=== PATIENT | female | born 1965 | race Caucasian/White ===

== ENCOUNTER 2016-05-23 13:48 | Emergency (ER) | payer OTHER ==
--- NOTE | 2016-05-23 15:51 | UC ---
Back Pain HPI - HPI Summary HPI Summary: 50 yo female with the onset of severe LBP radiating to both thighs which started about 1 AM no bowel/bladder dysfunction no injury Took a ultram with no relief (has ultram on hand for migraines) - History of Current Complaint Chief Complaint: UCBackPain Stated Complaint: LOWER BACK PAIN Time Seen by Provider: 05/23/16 15:44 Hx Obtained From: Patient Hx Last Menstrual Period: August Onset/Duration: Sudden Onset, Lasting Hours - 15 Timing: Constant Severity Initially: Severe Severity Currently: Severe Pain Intensity: 8 Pain Scale Used: 0-10 Numeric Back Pain: Is Discrete @ - mid line lumbar spine, Radiates To - to both thighs anteriorly Character: Sharp, Spasmodic, Burning Aggravating: Movement, Bending Alleviating: Position - Allergies/Home Medications Allergies/Adverse Reactions: Allergies Allergy/AdvReac Type Severity Reaction Status Date / Time Penicillins Allergy Hives Verified 05/23/16 15:12 Amoxicillin Allergy Hives Uncoded 05/23/16 15:12 Home Medications: Home Medications Omeprazole CAP* [Prilosec CAP* 20 MG] 1 cap DAILY 05/23/16 [History Confirmed ] traMADol TAB* [Ultram*] 1 tab PRN 05/23/16 [History] PMH/Surg Hx/FS Hx/Imm Hx Previously Healthy: Yes Endocrine History Of: Denies: Diabetes, Thyroid Disease Cardiovascular History Of: Denies: Cardiac Disorders, Hypertension, Pacemaker/ICD, Myocardial Infarction , Congestive Heart Failure, Atrial Fibrillation, Deep Vein Thrombosis, Bleeding Disorders Respiratory History Of: Denies: COPD, Asthma, Bronchitis, Pneumonia, Pulmonary Embolism GI/ History Of: Reports: Gastroesophageal Reflux - "I do have some reflux--I' m on prescription omeprazole--20 mg). Denies: Ulcer, Gastrointestinal Bleed, Gall Bladder Disease, Kidney Stones, Diverticulitis, Renal Disease, Urosepsis Neurological History Of: Denies: TIA, CVA, Dementia, Seizures, Migraine Psychological History Of: Reports: Anxiety, Depression Cancer History Of: Denies: Lung Cancer, Colorectal Cancer, Breast Cancer, Prostate Cancer, Cervical Cancer Other History Of: Negative For: HIV, Hepatitis B, Hepatitis C - Surgical History Surgical History: Yes Surgery Procedure, Year, and Place: TUBAL 1995. TENDON RELEASE LT THUMB 03/01 - Family History Known Family History: Positive: Diabetes Negative: Cardiac Disease - Social History Alcohol Use: None Substance Use Type: None Smoking Status (MU): Heavy Every Day Tobacco Smoker Type: Cigarettes Amount Used/How Often: 1/2 ppd Length of Time of Smoking/Using Tobacco: 36n years Have You Smoked in the Last Year: Yes Household Exposure Type: Cigarettes - Immunization History Most Recent Influenza Vaccination: 2016 Review of Systems Constitutional: Negative Skin: Negative Eyes: Negative ENT: Negative Respiratory: Negative Cardiovascular: Negative Gastrointestinal: Negative Genitourinary: Negative Motor: Negative Neurovascular: Negative Musculoskeletal: Arthralgia, Myalgia Neurological: Negative Psychological: Negative All Other Systems Reviewed And Are Negative: Yes Physical Exam Triage Information Reviewed: Yes Appearance: Well-Appearing, No Pain Distress, Well-Nourished Vital Signs: Initial Vital Signs Resp 18 05/23/16 15:15 Eyes: Positive: Conjunctiva Clear ENT: Positive: Hearing grossly normal. Negative: Nasal drainage, Trismus, Muffled/hoarse voice Neck: Positive: Nontender, No Lymphadenopathy Respiratory: Positive: Lungs clear, Normal breath sounds, No respiratory distress Cardiovascular: Positive: RRR Musculoskeletal: Positive: ROM Intact, No Edema Neurological: Positive: Alert, Muscle Tone Normal Psychological Exam: Normal Skin Exam: Normal Re-Evaluation - Re-Evaluation First Eval Re-Evaluation Time: 16:50 Change: Unchanged - no change with toradol Back Pain Course/Dx - Differential Dx/Diagnosis Provider Diagnoses: acute low back pain. DDD Discharge - Discharge Plan Condition: Stable Disposition: HOME Prescriptions: Cyclobenzaprine TAB* [Flexeril TAB*] 5 mg PO TID PRN #21 tab PRN Reason: Spasms HYDROcodone/ACETAMIN 5-325 MG* [Hill 5-325 TAB*] 1 tab PO Q4H PRN #15 tab MDD 5 PRN Reason: Pain - Severe Patient Education Materials: Degenerative Disc Disease (ED) Referrals: Nathan Maguire MD [Primary Care Provider] - 3 Days Additional Instructions: both meds will cause drowsiness Images Front/Back of Body, Lg ([facility]): 1 - painful (midline)
[2016-05-23] MEDS ORDERED: Ketorolac INJ* 30 MG/ML 1 ML VIAL IM ONE (15:56)
[2016-05-23 15:58] VITALS: BP 111/71
--- NOTE | 2016-05-23 16:43 | RAD ---
INDICATION: Low back pain COMPARISON: None TECHNIQUE: Routine PA, lateral, and oblique imaging was performed . FINDINGS: Bones: There are no acute bony findings. There are minor arthritic changes consisting of facet arthropathy and minor disc space narrowing at L5-S1. Alignment: Normal Disc spaces: The remaining disc spaces are well-maintained Soft tissues: There are no soft tissue abnormalities. IMPRESSION: MINOR DEGENERATIVE CHANGE LOWER LUMBAR SPINE.
[2016-05-23] MEDS ORDERED: HYDROcodone/ACETAMIN 5-325 MG* 1 TAB PO ONE (16:53)
== END 2016-05-23 17:05 | disposition home or self-care (01) ==
LOC: UCEAST 13:48
DX: M54.5 Low back pain (principal); M51.36 Other intervertebral disc degeneration, lumbar region; Z88.0 Allergy status to penicillin; F17.210 Nicotine dependence, cigarettes, uncomplicated
CPT/HCPCS: 72110; 96372; 99212; G0463; J1885

== ENCOUNTER 2017-02-15 16:11 | Emergency (ER) | payer OTHER ==
[2017-02-15] MEDS ORDERED: NS 0.9% 1000 ML* 1,000 ML IV ONE (16:42)
[2017-02-15] MEDS ORDERED: Ondansetron INJ* 2 MG/ML VIAL IV ONE (16:42)
[2017-02-15] MEDS ORDERED: Morphine INJ* 4 MG/ML 1 ML CARPUJECT IV ONE (16:42)
[2017-02-15 17:03] LABS: Urine Bacteria Absent (Absent); Urine Bilirubin Negative (Negative); Urine Glucose Negative (Negative); Urine Nitrite Negative (Negative)
[2017-02-15 17:11] LABS: Hematocrit 35 % (35-47); Hemoglobin 12.2 g/dl (12.0-16.0); Mean Corpuscular HGB Conc 35 g/dl (31-36); Mean Corpuscular Hemoglobin 35 pg (27-31); Mean Corpuscular Volume 102 fL (80-97); Mean Platelet Volume 7 um3 (7.4-10.4); Red Blood Count 3.44 10^6/ul (4.0-5.4); Red Cell Distribution Width 13 % (10.5-15); White Blood Count 10.3 10^3/ul (3.5-10.8)
[2017-02-15 17:12] LABS: Albumin 4.1 g/dL (3.2-5.2); BUN/Creatinine Ratio 17.5 (8-20); C Reactive Protein 42.52 mg/L (< 5.00); Calcium 8.8 mg/dL (8.6-10.3); EGFR African American 97.6 (>60); EGFR Non-African American 75.9 (>60); Globulin 2.7 g/dL (2-4); Potassium 3.9 mmol/L (3.5-5.0); Total Bilirubin 0.3 mg/dL (0.2-1.0); Total Protein 6.8 g/dL (6.4-8.9)
--- NOTE | 2017-02-15 17:36 | RAD ---
Indication: RIGHT upper quadrant pain. Comparison: No relevant prior exams available on the [facility] for comparison. Technique: RIGHT upper quadrant ultrasound. Report: Appropriate direction flow documented in the portal and hepatic veins. 17.9 cm liver is increased in echogenicity. Negative for focal hepatic lesions. Negative for intrahepatic biliary dilatation. 3.9 mm common bile duct. Partially distended but not dilated gallbladder with normal 2.8 mm wall is remarkable for a 1 cm stone at the neck. Negative for pericholecystic fluid. Negative for sonographic Tillman's sign. The pancreatic tail is partially obscured due to bowel gas with the visualized pancreas unremarkable. Negative for ascites. 9.6 cm RIGHT kidney is unremarkable. IMPRESSION: Cholelithiasis without secondary findings to suggest acute cholecystitis. Hepatic steatosis.
[2017-02-15 18:35] VITALS: BP 111/70
--- NOTE | 2017-02-15 18:44 | ED ---
Ladi Tatum SooYoung, scribed for Morgan Chow MD on 02/15/17 at 1638 . Abdominal Pain/Female - HPI Summary HPI Summary: A 51 y/o F presents to ED with c/o R-sided abd pain onset 0030 last night. Pain is rated as 7-8 out of 10. Associated sx: chills. Denies n/v, fever. Pt has her appy, gallbladder. [facility] two days ago. - History of Current Complaint Chief Complaint: EDAbdPain Stated Complaint: RT SIDED ABD PAIN Time Seen by Provider: 02/15/17 16:35 Hx Obtained From: Patient, Family/Blood Bank Booking Clerk Hx Last Menstrual Period: August Onset/Duration: Lasting Hours, Still Present Timing: Constant Severity Currently: Severe Pain Intensity: 9 Pain Scale Used: 0-10 Numeric Location: Discrete At: RUQ, Discrete At: RLQ Associated Signs and Symptoms: Positive: Other: - pos: chills. Negative: Fever , Nausea, Vomiting Allergies/Adverse Reactions: Allergies Allergy/AdvReac Type Severity Reaction Status Date / Time Penicillins Allergy Hives Verified 02/15/17 16:22 Amoxicillin Allergy Hives Uncoded 02/15/17 16:22 PMH/Surg Hx/FS Hx/Imm Hx Previously Healthy: No Endocrine/Hematology History: Denies: Hx Diabetes, Hx Thyroid Disease Cardiovascular History: Denies: Hx Congestive Heart Failure, Hx Deep Vein Thrombosis, Hx Hypertension , Hx Myocardial Infarction, Hx Pacemaker/ICD Respiratory History: Denies: Hx Asthma, Hx Chronic Obstructive Pulmonary Disease (COPD), Hx Lung Cancer, Hx Pneumonia, Hx Pulmonary Embolism GI History: Reports: Hx Gastroesophageal Reflux Disease, Hx Ulcer Denies: Hx Gall Bladder Disease, Hx Gastrointestinal Bleed, Hx Urosepsis History: Denies: Hx Kidney Stones, Hx Renal Disease Sensory History: Denies: Hx Hearing Aid Neurological History: Reports: Hx Headaches Denies: Hx Dementia, Hx Migraine, Hx Seizures, Hx Transient Ischemic Attacks (TIA) Psychiatric History: Reports: Hx Anxiety, Hx Depression Denies: Hx Panic Disorder - Surgical History Surgery Procedure, Year, and Place: TUBAL 1995. TENDON RELEASE LT THUMB 03/01 Infectious Disease History: No Infectious Disease History: Denies: Hx Hepatitis, Hx Human Immunodeficiency Virus (HIV), History Other Infectious Disease, Traveled Outside the [place] in Last 30 Days - Family History Known Family History: Positive: Cardiac Disease, Hypertension, Diabetes - Social History Occupation: Unemployed Lives: With Family Alcohol Use: None Hx Substance Use: No Substance Use Type: Reports: None, Prescribed Hx Tobacco Use: Yes Smoking Status (MU): Light Every Day Tobacco Smoker Type: Cigarettes Amount Used/How Often: 1/2 ppd Length of Time of Smoking/Using Tobacco: 36n years Have You Smoked in the Last Year: Yes Review of Systems Positive: Chills. Negative: Fever Positive: Abdominal Pain. Negative: Vomiting, Nausea All Other Systems Reviewed And Are Negative: Yes Physical Exam - Summary Physical Exam Summary: VITAL SIGNS: Reviewed. GENERAL: Patient is a well-developed and nourished female who is lying comfortable in the stretcher. Patient is not in any acute respiratory distress. HEAD AND FACE: Normocephalic and atraumatic. EYES: PERRLA, EOMI x 2, No injected conjunctiva. EARS: Hearing grossly intact. Ear canals and tympanic membranes are WNL. MOUTH: Oropharynx within normal limits. NECK: Supple, trachea is midline, no adenopathy, no JVD. CHEST: Symmetric, no tenderness at palpation LUNGS: Clear to auscultation bilaterally. No wheezing or crackles. CVS: RRR, S1 and S2 present, no murmurs or gallops appreciated. ABDOMEN: Soft, RUQ tenderness. No signs of distention. Positive bowel sounds. No rebound, some guarding, and no masses palpated. No abdominal bruit or pulsations. EXTREMITIES: FROM in all major joints, no edema, no cyanosis or clubbing. NEURO: Alert and oriented x 3. No acute neurological deficits. Speech is normal. SKIN: Dry and warm Triage Information Reviewed: Yes Vital Signs On Initial Exam: Initial Vitals Temp Pulse Resp BP Pulse Ox 97.6 F 107 14 108/62 98 02/15/17 16:16 02/15/17 16:16 02/15/17 16:16 02/15/17 16:16 02/15/17 16:16 Vital Signs Reviewed: Yes - [place] Coma Scale Coma Scale Total: 15 Diagnostics - Vital Signs Vital Signs Temp Pulse Resp BP Pulse Ox 02/15/17 16:16 97.6 F 107 14 108/62 98 - Laboratory Lab Results: Lab Results 02/15/17 02/15/17 02/15/17 Range/Units 16:30 16:46 16:46 WBC 10.3 (3.5-10.8) 10^3/ul RBC 3.44 L (4.0-5.4) 10^6/ul Hgb 12.2 (12.0-16.0) g/dl Hct 35 (35-47) % MCV 102 H (80-97) fL MCH 35 H (27-31) pg MCHC 35 (31-36) g/dl RDW 13 (10.5-15) % Plt Count 392 (150-450) 10^3/ul MPV 7 L (7.4-10.4) um3 Neut % (Auto) 69.4 (38-83) % Lymph % (Auto) 18.1 L (25-47) % [place] % (Auto) 10.9 H (1-9) % Eos % (Auto) 1.4 (0-6) % Baso % (Auto) 0.2 (0-2) % Absolute Neuts (auto) 7.2 (1.5-7.7) 10^3/ul Absolute Lymphs (auto) 1.9 (1.0-4.8) 10^3/ul Absolute Monos (auto) 1.1 H (0-0.8) 10^3/ul Absolute Eos (auto) 0.1 (0-0.6) 10^3/ul Absolute Basos (auto) 0 (0-0.2) 10^3/ul Absolute Nucleated RBC 0.01 10^3/ul Nucleated RBC % 0 Sodium 135 (133-145) mmol/L Potassium 3.9 (3.5-5.0) mmol/L Chloride 104 (101-111) mmol/L Carbon Dioxide 25 (22-32) mmol/L Anion Gap 6 (2-11) mmol/L BUN 14 (6-24) mg/dL Creatinine 0.80 (0.51-0.95) mg/dL Est GFR ( Amer) 97.6 (>60) Est GFR (Non-Af Amer) 75.9 (>60) BUN/Creatinine Ratio 17.5 (8-20) Glucose 88 (70-100) mg/dL Calcium 8.8 (8.6-10.3) mg/dL Total Bilirubin 0.30 (0.2-1.0) mg/dL AST 19 (13-39) U/L ALT 17 (7-52) U/L Alkaline Phosphatase 93 (34-104) U/L C-Reactive Protein 42.52 H (< 5.00) mg/L Total Protein 6.8 (6.4-8.9) g/dL Albumin 4.1 (3.2-5.2) g/dL Globulin 2.7 (2-4) g/dL Albumin/Globulin Ratio 1.5 (1-3) Lipase 19 (11.0-82.0) U/L Urine Color Yellow Urine Appearance Clear Urine pH 5.0 (5-9) Ur Specific [place] 1.011 (1.010-1.030) Urine Protein Negative (Negative) Urine Ketones Negative (Negative) Urine Blood 1+ H (Negative) Urine Nitrate Negative (Negative) Urine Bilirubin Negative (Negative) Urine Urobilinogen Negative (Negative) Ur Leukocyte Esterase Negative (Negative) Urine WBC (Auto) Absent (Absent) Urine RBC (Auto) Trace(0-2/hpf) (Absent) Urine Bacteria Absent (Absent) Urine Glucose Negative (Negative) Result Diagrams: 02/15/17 16:46 02/15/17 16:46 Lab Statement: Any lab studies that have been ordered have been reviewed, and results considered in the medical decision making process. - Ultrasound No standard instances Ultrasound Interpretation: Positive (See Comments) - IMPRESSION: Cholelithiasis without secondary findings to suggest acute cholecystitis. Hepatic steatosis. ED physician has reviewed this radiology report and agrees Ultrasound Interpretation Completed By: Radiologist - EKG 1735 Cardiac Rate: NL - 95bpm EKG Rhythm: Sinus Rhythm ST Segment: Normal - no ST elevation EKG Interpretation: Q-waves in III EKG Comparison: No Significant Change - from EKG on 09/14/2015 Re-Evaluation - Re-Evaluation 1 Re-Evaluation Time: 17:35 Change: Improved Comment: Discussing results with pt. Pt voiced understanding. Pain has subsided. Abdominal Pain Fem Course/Dx - Course Course Of Treatment: A 51 y/o F presents to ED with c/o R-sided abd pain onset 0030 last night. Pain is rated as 7-8 out of 10. Associated sx: chills. Denies n /v, fever. Pt has her appy, gallbladder. [facility] two days ago. In the ED course an IV access was obtained. Patient was placed in a builder beam. Patient was started with IV fluids. Patient was given Zofran and morphine for the pain. Labs without any significant abnormality except for CRP 42.5. UA is negative for UTI. RUQ U/S IMPRESSION: Cholelithiasis without secondary findings to suggest acute cholecystitis. Hepatic steatosis. After hydration and above medications all her symptoms have improved. Patient is asymptomatic. I believe all her symptoms are secondary to the Cholelithiasis. Patient will be discharge home with F/U of Surgery. Patient instructed that if pain increases, if pain appears in the RLQ she should return to the ED for further w/u. Patient understands and agrees. I discussed all the findings and test results with the patient. Patient was instructed to return to the emergency room immediately if any of the symptoms return or worsens. They were explained the possibility of an early abdominal pathology which was not detected at this time despite the physical exam and testing. They understand and agree. Abdominal exam before discharge: Soft, NT. No signs of distention. BS present. No rebound no guarding , and no masses palpated. Patient is alert and oriented and hemodynamically stable. Patient is to follow up with primary care physician in the next 2 to 3 days. Patient agree and understands. - Diagnoses Differential Diagnosis: Positive: Appendicitis, Constipation, Gall Bladder Disease, Pancreatitis, Renal Colic, Urinary Tract Infection Provider Diagnoses: Cholelithiasis Discharge - Discharge Plan Condition: Stable Disposition: HOME Patient Education Materials: Gallstones (ED) Referrals: Nathan Maguire MD [Primary Care Provider] - Angel Holley MD [Medical Doctor] - 1 Week Additional Instructions: Follow up with Dr. Holley, surgery, within the week. Please return to the ED if you experience new or worsening symptoms. The documentation as recorded by the Ladi boyd SooYoung accurately reflects the service I personally performed and the decisions made by , Morgan Chow MD.
== END 2017-02-15 18:35 | disposition home or self-care (01) ==
LOC: ED 16:11
DX: R10.9 Unspecified abdominal pain (principal); F17.210 Nicotine dependence, cigarettes, uncomplicated; K80.20 Calculus of gallbladder without cholecystitis without obstruction
CPT/HCPCS: 36415; 76705; 80053; 81003; 81015; 83690; 85025; 86140; 93005; 96374; 96375; 99282; J2270; J2405

== ENCOUNTER 2017-07-15 09:47 | Emergency (ER) | payer OTHER ==
--- OUTSIDE RECORDS SUMMARY | 2017-07-15 09:56 | XMS REPORT ---
:1965 External Reference #:[id number] Author Organization [facility] [employer] Address [address] [address] Phone [phone] Care Team Providers Name Role Phone Qi Johnson MD Primary Care Physician Unavailable Payers Type Date Identification Numbers Payment Provider Subscriber Commercial Policy Number: [id number] [employer] Name: [id number] [address] PayID: [id number] [place] [address] Commercial Effective: 2016 Policy Number: [id number] Evaristo Rutledge Expires: 2016 Group Name: [id number] [address] PayID: [id number] [place] [address] Commercial Expires: 2017 Policy Number: [id number] [employer] Name: [id number] [address] PayID: [id number] [place] [address] Problems Date Description Provider Status Onset: 02/24/2014 Degeneration of lumbar intervertebral Nisa Vasques M.D. Active disc Onset: 02/24/2014 Degeneration of cervical intervertebral Nisa Vasques M.D. Active disc Note: C5/C6 with bilateral foraminal stenosis Onset: 02/24/2014 Irregular periods Nisa Vasques M.D. Active Onset: 05/27/2017 Anxiety disorder Qi Johnson M.D. Active Onset: 02/24/2014 Acute gastritis Nisa Vasques M.D. Resolved Resolved: 05/27/2017 Social History Type Date Description Comments Marital Status Lives With Lives With Children Occupation retired ordnance truck installation supervisor WC injury Cigarette Use Current Cigarette Smoker 1 1/2 Packs Daily Cigarette Use 36 yr started age 13 ETOH Use Denies alcohol use Recreational Drug Use Denies Drug Use Smoking Patient is a current smoker, smokes every day Smoking Light tobacco smoker (10 or fewer cigarettes/day) Exercise Type/Frequency Exercises regularly Exercise Type/Frequency 1-2 x per week walks Sexual Hx text yes Allergies, Adverse Reactions, Alerts Date Description Reaction Status Severity Comments 02/24/2014 Nicotine adhesive bothers skin active Moderate allergic to the patches. 02/24/2014 Adhesive rash active Moderate 02/24/2014 Penicillin Contact dermatitis active Moderate 02/24/2014 Amoxicillin Contact dermatitis active Moderate 02/24/2014 Celebrex swelling active Moderate 02/24/2014 Lyrica swelling active Moderate 02/24/2014 Topamax headache active Moderate 02/24/2014 Cymbalta swelling active 02/24/2014 Gabapentin headache active Moderate 02/24/2014 Hydrocodone increased pain active Mild 02/24/2014 Vicodin increased pain active Mild 07/06/2014 Tramadol headache active Moderate Medications Medication Date Status Form Strength Qnty SIG Indications Ordering Provider Home Cervical 06/22/ Active Device use for M50.80 [employer] [employer] 2018 10-25 Howell, minutes M.D. twice daily at 7 pounds. stop if symptoms worsen Compression 06/10/ Active Misc 1Pair 10-20 mm I87.2 Qi Stockings 2018 hg as Alex, needed M.D. Venlafaxine HCL 05/27/ Active Tablets ER 225mg 30tab once a F41.9 Qi ER 2018 24HR s day Aldo Johnson Baclofen 05/01/ Active Tablets 10mg 90tab 1 by Qi 2014 s mouth 3 Johnson, times a M.D. day Tension Headache / Active Tablets 500-65mg 6 po qd Unknown Relief 0000 as needed Arnicare / Active Gel apply to Unknown 0000 painful area 3-4 times a day as needed for pain Ibuprofen / Active Tablets 200mg as needed Unknown 0000 Omeprazole / Active Capsules 40mg [address] mouth every day Ventolin HFA / Active Aerosol 108(90Base Unknown 0000 ) mcg/Act Krill Oil / Active Capsules 500mg Unknown 0000 Womens One Daily / Active Tablets 1 by Unknown 0000 mouth every day Muscle Therapy / Active as needed Unknown Gel With Arnica 0000 for back and neck Flector 05/27/ Hx Patches 1.3% 10uni 1 patch M50.03 Qi 2017 - ts daily Johnson, 06/10/ M.D. 2017 Hydroxyzine HCL 11/26/ Hx Tablets 25mg 30tab 1 tab by F41.9 Qi 2015 - mouth Alex, 01/26/ every M.D. 2017 night as needed for anxiety Ventolin HFA 06/12/ Hx Aerosol 108(90Base 1unit 2 puffs Nisa 2015 - ) mcg/Act s by mouth Layo, 01/26/ four M.D. 2017 times a day as needed Chantix 06/05/ Hx Tablets 1mg 30tab 1 by F17.210 Nisa 2015 - mouth Layo, 11/26/ twice a M.D. 2015 day Chantix 05/04/ Hx Tablets 0.5mg 1tabs starter F17.210 Nisa 2015 - pack as Layo, 06/05/ directed M.D. 2016 Venlafaxine HCL 11/17/ Hx Tablets 75mg 30tab 1 by F41.9 Nisa 2014 mouth Layo, 01/26/ every day M.D. 2016 Chantix 08/31/ Hx Tablets 1mg 60tab 1 by Nisa 2014 - s mouth Layo, 10/05/ twice a M.D. 2014 day Chantix 08/10/ Hx Tablets 0.5mg 1tabs starter V15.82 Nisa 2014 pack as Layo, 06/04/ directed M.D. 2016 Venlafaxine HCL 07/06/ Hx Caps ER 150mg 30cap 1 by N92.6 Nisa ER 2014 - 24HR s mouth Layo, 05/27/ every day M.D. 2017 Venlafaxine HCL 04/07/ Hx Tablets 75mg 30tab 1 by 626.4 Nisa 2013 - s mouth Layo, 07/06/ every day M.D. 2014 Venlafaxine HCL 03/08/ Hx Caps ER 37.5mg 1mont 1 tab by 626.4 Nisa LONGORIA 2013 - 24HR h mouth Layo, 04/07/ every day M.D. 2013 7 days the 2 tab by mouth every day 3 weeks Nicotrol 03/08/ Hx Inhaler 10mg 150un i inhaler V15.82 Nias 2013 - its 5 ginnyaviva Layo, 05/01/ per day M.D. 2014 as needed Cyclobenzaprine 02/24/ Hx Tablets 10mg 30tab one by Fiedl MAYA 2013 - s mouth at [place] 05/01/ bedtime 1 , M.D. 2014 per day as needed spasm Omeprazole 02/24/ Hx Capsules 20mg 90cap 1 by K29.00 Qi 2013 - DR ash Johnson, 05/27/ every day M.D. 2017 Excedrin Migraine / Hx Tablets 250-250-65 2 po qd Unknown 0000 - mg as needed 2014 Back & Body / Hx Tablets 500-32.5mg 6 po qd Unknown Extra Strength - 2014 Deep Blue Relief / Hx Gel twice a Unknown 0000 - day as 2014 and to neck and back Acid Hand Knitter / Hx Tablets 150mg 1 by Unknown 0000 - mouth 07/06/ every day 2014 Tums / Hx Chewtabs 500mg as needed Unknown - 2014 Meloxicam / Hx Tablets 7.5mg 1 by Unknown 0000 - mouth 09/19/ every day 2015 Multi For Her / Hx Capsules 1 by Unknown 0000 - mouth 01/18/ every day 2014 Tramadol HCL / Hx Tablets 50mg 1-2 Unknown 0000 - tablets 2018 hours as needed Hair/Skin/Nails / Hx Tablets Unknown 0000 - 2017 Immunizations CPT Code Status Date Vaccine Lot # [id number] Given 03/18/2017 Influenza Virus Vaccine, Quadrivalent, Split, Preservative Free [id number] Given 03/29/2015 Influenza Virus Vaccine, Quadrivalent, Split, [id number] Preservative Free 47219 Given 02/24/2014 Flu Vaccine Split Virus Preservative Free For Indiv [id number] Older Vital Signs Date Vital Result Comment 06/22/2017 Height 62 inches 5'2" Weight 192.00 lb Heart Rate 88 /min BP Systolic Sitting 134 mmHg BP Diastolic Sitting 84 mmHg Pain Level 6 BMI (Body Mass Index) 35.1 kg/m2 06/10/2017 Weight 192.00 lb Heart Rate 98 /min BP Systolic Sitting 110 mmHg BP Diastolic Sitting 76 mmHg Pain Level 8 O2 % BldC Oximetry 96 % 05/27/2017 Weight 191.00 lb Heart Rate 105 /min BP Systolic Sitting 120 mmHg BP Diastolic Sitting 78 mmHg O2 % BldC Oximetry 96 % 03/03/2017 Heart Rate 62 /min Respiratory Rate 16 /min Body Temperature 97.6 F 02/17/2017 Height 62 inches 5'2" Weight 181.00 lb Heart Rate 72 /min BP Systolic 120 mmHg BP Diastolic 82 mmHg Respiratory Rate 18 /min Body Temperature 97.8 F BMI (Body Mass Index) 33.1 kg/m2 01/26/2017 Height 62 inches 5'2" Weight 181.00 lb Heart Rate 82 /min BP Systolic Sitting 140 mmHg BP Diastolic Sitting 80 mmHg Pain Level 9 BMI (Body Mass Index) 33.1 kg/m2 11/27/2015 Weight 166.00 lb Heart Rate 105 /min BP Systolic Sitting 114 mmHg BP Diastolic Sitting 70 mmHg Body Temperature 97.3 F O2 % BldC Oximetry 98 % 09/20/2015 Height 62 inches 5'2" Weight 170.00 lb Heart Rate 98 /min BP Systolic Sitting 134 mmHg BP Diastolic Sitting 76 mmHg Body Temperature 98.5 F O2 % BldC Oximetry 98 % BMI (Body Mass Index) 31.1 kg/m2 06/05/2015 Weight 177.50 lb Heart Rate 96 /min BP Systolic Sitting 112 mmHg BP Diastolic Sitting 71 mmHg Body Temperature 97.6 F O2 % BldC Oximetry 96 % 05/04/2015 Weight 174.75 lb Heart Rate 95 /min BP Systolic Sitting 118 mmHg BP Diastolic Sitting 70 mmHg Body Temperature 97.9 F O2 % BldC Oximetry 97 % 01/18/2015 Weight 179.00 lb Heart Rate 96 /min BP Systolic Sitting 118 mmHg BP Diastolic Sitting 78 mmHg Body Temperature 99.1 F O2 % BldC Oximetry 97 % 11/17/2014 Weight 174.00 lb Heart Rate 102 /min BP Systolic Sitting 118 mmHg BP Diastolic Sitting 70 mmHg Body Temperature 98.6 F O2 % BldC Oximetry 96 % 09/15/2014 Weight 175.75 lb Heart Rate 97 /min BP Systolic Sitting 121 mmHg BP Diastolic Sitting 84 mmHg 08/10/2014 Weight 168.00 lb Heart Rate 91 /min BP Systolic Sitting 102 mmHg BP Diastolic Sitting 68 mmHg Body Temperature 98.0 F O2 % BldC Oximetry 97 % 07/06/2014 Height 62 inches 5'2" Weight 165.50 lb Heart Rate 104 /min BP Systolic Sitting 138 mmHg BP Diastolic Sitting 80 mmHg O2 % BldC Oximetry 97 % BMI (Body Mass Index) 30.3 kg/m2 05/01/2014 Height 62 inches 5'2" Weight 162.00 lb Heart Rate 76 /min BP Systolic Sitting 124 mmHg BP Diastolic Sitting 86 mmHg Pain Level 8 neck/back/head BMI (Body Mass Index) 29.6 kg/m2 04/07/2014 Height 62 inches 5'2" Weight 161.75 lb Heart Rate 112 /min BP Systolic Sitting 113 mmHg BP Diastolic Sitting 76 mmHg Respiratory Rate 16 /min Body Temperature 97.8 F BMI (Body Mass Index) 29.6 kg/m2 03/08/2014 Weight 155.00 lb Heart Rate 98 /min BP Systolic Sitting 110 mmHg BP Diastolic Sitting 60 mmHg 02/24/2014 Height 62 inches 5'2" Weight 156.00 lb Heart Rate 97 /min BP Systolic Sitting 104 mmHg BP Diastolic Sitting 68 mmHg Body Temperature 98.5 F Pain Level 7 O2 % BldC Oximetry 97 % BMI (Body Mass Index) 28.5 kg/m2 Results Test Date Test Result H/L Range Note Laboratory test finding 05/27/2017 TSH (Thyroid Stim 2.37 mcIU/mL 0.34- 5.60 Horm) Urinalysis Profile 05/27/2017 Urine Color Yellow Urine Appearance Clear Urine Specific [place] 1.012 1.010-1.030 Urine pH 5.0 5-9 Urine Urobilinogen Negative Negative Urine Ketones Negative Negative Urine Protein Negative Negative Urine Leukocytes Negative Negative Urine Blood 3+ Negative Urine Nitrite Negative Negative Urine Bilirubin Negative Negative Urine Glucose Negative Negative Urine White Blood Cell Trace(0-5/hpf) Absent Urine Red Blood Cell 2+(6-10/hpf) Absent Urine Bacteria 1+ Absent Urine Squamous Epithelial Cell Present Absent Comp Metabolic Panel 05/27/2017 Sodium 137 mmol/L 133-145 Potassium 4.0 mmol/L 3.5-5.0 Chloride 105 mmol/L 101-111 Co2 Carbon Dioxide 24 mmol/L 22-32 Anion Gap 8 mmol/L 2-11 Glucose 90 mg/dL 70-100 Blood Urea Nitrogen 13 mg/dL 6-24 Creatinine 0.74 mg/dL 0.51-0.95 BUN/Creatinine Ratio 17.6 8-20 Calcium 9.1 mg/dL 8.6-10.3 Total Protein 6.6 g/dL 6.4-8.9 Albumin 4.2 g/dL 3.2-5.2 Globulin 2.4 g/dL 2-4 Albumin/Globulin Ratio 1.8 1-3 Total Bilirubin 0.30 mg/dL 0.2-1.0 Alkaline Phosphatase 99 U/L 34-104 Alt 17 U/L 7-52 Ast 21 U/L 13-39 Egfr Non- 83.1 >60 Egfr 106.8 >60 1 CBC Auto Diff 05/27/2017 White Blood Count 7.2 10^3/uL 3.5-10.8 Red Blood Count 3.65 10^6/uL Low 4.0-5.4 Hemoglobin 12.4 g/dL 12.0-16.0 Hematocrit 36 % 35-47 Mean Corpuscular Volume 100 fL High 80-97 Mean Corpuscular Hemoglobin 34 pg High 27-31 Mean Corpuscular HGB Conc 34 g/dL 31-36 Red Cell Distribution Width 14 % 10.5-15 Platelet Count 358 10^3/uL 150-450 Mean Platelet Volume 7 um3 Low 7.4-10.4 Abs Neutrophils 4.2 10^3/uL 1.5-7.7 Abs Lymphocytes 2.1 10^3/uL 1.0-4.8 Abs Monocytes 0.7 10^3/uL 0-0.8 Abs Eosinophils 0.1 10^3/uL 0-0.6 Abs Basophils 0 10^3/uL 0-0.2 Abs Nucleated RBC 0 10^3/uL Granulocyte % 58.5 % 38-83 Lymphocyte % 29.3 % 25-47 Monocyte % 10.2 % High 1-9 Eosinophil % 1.7 % 0-6 Basophil % 0.3 % 0-2 Nucleated Red Blood Cells % 0 Urine Culture And 05/27/2017 Urine Culture SEE RESULT BELOW 2 Sensitivities Laboratory test 02/23/2017 Surgical SEE RESULT BELOW 3 finding Pathology Laboratory test 02/23/2017 HIV 1&2 AB Nonreactive Nonreactive 4 finding Self Referred Laboratory test 07/06/2014 Cytology RUN DATE: finding <SEE NOTE> Laboratory test 04/07/2014 Cytology RUN DATE: finding <SEE NOTE> Human Papilloma Virus Rna Negative Negative 7 Comp Metabolic Panel 02/27/2014 Sodium 137 mmol/L 133-145 8 Potassium 4.3 mmol/L 3.5-5.0 8 Chloride 110 mmol/L 101-111 8 Co2 Carbon Dioxide 24 mmol/L 22-32 8 Anion Gap 3 mmol/L 2-11 8 Glucose 85 mg/dL 70-100 8 Blood Urea Nitrogen 10 mg/dL 6-24 8 Creatinine 0.90 mg/dL 0.51-0.95 8 BUN/Creatinine Ratio 11.1 8-20 8 Calcium 8.6 mg/dL 8.6-10.3 8 Total Protein 6.0 g/dL Low 6.4-8.9 8 Albumin 3.8 g/dL 3.2-5.2 8 Globulin 2.2 g/dL 2-4 8 Albumin/Globulin Ratio 1.7 1-3 8 Total Bilirubin 0.30 mg/dL 0.2-1.0 8 Alkaline Phosphatase 77 U/L 34-104 8 Alt 11 U/L 7-52 8 Ast 13 U/L 13-39 8 Egfr Non- 67.1 >60 8 Egfr 86.3 >60 8, 9 Laboratory test 02/27/2014 TSH (Thyroid Stimulating 1.35 IU/mL 0.34-5.60 8, 10 finding Horm) Lipid Profile 02/27/2014 Triglycerides 129 mg/dL 8, 11 (Trig/Chol/HDL) Cholesterol 177 mg/dL 8, 12 HDL Cholesterol 46.1 mg/dL 8, 13 LDL Cholesterol 105 mg/dL 8, 14 1 Because ethnic data is not always readily available, this report includes an eGFR for both -Americans and non- Americans. The National Kidney Disease Education Program (NKDEP) does not endorse the use of the MDRD equation for patients that are not between the ages of 18 and 70, are , have extremes of body size, muscle mass, or nutritional status, or are non- or non-. According to the National Kidney Foundation, irrespective of diagnosis, the stage of the disease is based on the level of kidney function: Stage Description GFR(mL/min/1.73 m(2)) 1 Kidney damage with normal or decreased GFR 90 2 Kidney damage with mild decrease in GFR 60-89 3 Moderate decrease in GFR 30-59 4 Severe decrease in GFR 15-29 5 Kidney failure <15 (or dialysis) 2 SEE RESULT BELOW Name: MALLORIE RUTLEDGEYULI Loya : [address]: Qi Johnson MD Acct: [id number] Unit: [id number] AGE: 51 Location: [facility] Re05/27/17 SEX: F Status: REG REF SPEC: [id number] BRODY: 05/27/[address]: Qi Johnson MD REQ: [id number] RECD: 05/27/17 STATUS: COMP _ SOURCE: URINE SPDESC: ORDERED: Urine Culture Procedure Result Reported Site Urine Culture Final 05/29/17- 32 ML No Growth (<1,000 CFU/mL) * ML - MAIN LAB ([facility]) . END OF REPORT * ML=Testing performed at Main Lab DEPARTMENT OF PATHOLOGY, [address] [place] [address] Hay Holly M.D. Director [facility] # [id number] 3 SEE RESULT BELOW Name: YUDY RUTLEDGE : [address]: Angel Holley MD Acct: [id number] Unit: [id number] AGE: 51 Location: [place] Re02/23/17 SEX: F Status: ELIA HASTINGS SPEC: [id number] BRODY: 02/23/17- [facility] DR: Angel Holley MD REQ: [id number] RECD: 02/23/17 STATUS: SOUT _ ORDERED: LEVEL 3 FINAL DIAGNOSIS Gallbladder, cholecystectomy: -- Chronic cholecystitis. -- Cholelithiasis. -- Cholesterolosis. PRE-OPERATIVE DIAGNOSIS Calculus of gallbladder, without GROSS DESCRIPTION The specimen is received in formalin labeled, Gallbladder, and consists of a 7.5 x 2.5 x 2.0 cm intact gallbladder. The serosa is glistening smooth to wrinkled crisostomo- purple. Within the lumen there is a 0.8 x 0.7 x 0.7 cm yellow ovoid crystalloid cholelith admixed with abundant yellow-green viscid bile. The mucosa is reticulated crisostomo-pink with diffuse yellow stippling and the wall thickness averages 0.1 cm. Grain Sacker sections, one cassette. Signed (signature on file) Alejandra Olvera MD 05/13 1014 END OF REPORT * ML=Testing performed at Main Lab DEPARTMENT OF PATHOLOGY, [address] [place] [address] Hay Holly M.D. Director [facility] # [id number] 4 It is recognized that currently available assays for the detection of antibodies to HIV-1 and/or HIV-2 may not detect all infected individuals. HIV antibodies may be undetectable in some stages of the infection and in some clinical conditions. The performance of this assay has not been established for populations of infants or children. Assayed by Chemiluminescence Microparticle Immunoassay on the Siemens Advia Centaur CP. Values obtained with different methods or kits cannot be used interchangeably.The diagnostic specificity of the ADVIA Centaur 1/O/2 Enhanced assay in the low risk population was 99.90% (6052/6058) with a 95% confidence interval of 99.78 to 99.96%. 5 RUN DATE: 07/07/14 [facility] LAB LIVE PAGE 1 RUN TIME: [address] [place] [address] Specimen Inquiry Name: YUDY RUTLEDGE : [address]: Nisa Vasques MD Acct: [id number] Unit: [id number] AGE: 48 Location: [facility] Re07/06/14 SEX: F Status: REG REF SPEC: [id number] BRODY: 07/06/14-[address] [facility] [address]: Nisa Vasques MD REQ: [id number] RECD: 07/06/14-1522 STATUS: SOUT _ ORDERED: IMAGE ANALYSIS, PAP SM PATH REV FINAL DIAGNOSIS Negative for Intraepithelial lesion or Malignancy Reactive cellular changes associated with Inflammation (includes typical repair) A. Ectocervical/Endocervical Specimen Adequacy: Satisfactory of evaluation Transformation zone component identified Patient Information: HPV: Thin Layer Pap Test w/reflex to high risk HPV RNA testing when ASCUS Actual Specimen Date: 07/06/14 LMP If Unknown: 05/2014 ?: N Post Menopausal?: N Hysterectomy?: N Previous Abnormal Pap Smears?:Y If Yes, enter Diagnosis: Atypical Squamous cells of uncertain significance. Signed (signature on file) Alejandra Olvera MD 1256 This Pap test was evaluated with the assistance of the PellePharmPrep Test Imaging System. Due to cytologic findings at the stand in microscope, comprehensive manual rescreening by a Manager Research And Development may be required. The Pap Smear is a screening test designed to aid in the detection of premalignant and malignant conditions of the uterine cervix. It is not a diagnostic procedure and should not be used as the sole means of detecting cervical cancer. Both false- positive and false- negative reports do occur. Depending on your risk status, a Pap smear should be obtained and evaluated every 1-3 years. END OF REPORT * ML=Testing performed at Main Lab DEPARTMENT OF PATHOLOGY, [facility] [place] [address] Hay Holly M.D. Director [facility] # [id number] 6 RUN DATE: 04/10/14 [facility] LAB LIVE PAGE 1 RUN TIME: 1526 [facility] [place], [place] [address] Specimen Inquiry Name: YUDY RUTLEDGE : [address]: Nisa Vasques MD Acct: [id number] Unit: [id number] AGE: 48 Location: [facility] Re04/07/14 SEX: F Status: REG REF SPEC: [id number] BRODY: 04/07/14-[address] [facility] [address]: Nisa Vasques MD REQ: [id number] RECD: 04/07/14 STATUS: SOUT _ ORDERED: IMAGE ANALYSIS, PAP SM PATH REV, HPV/Thin Prep FINAL DIAGNOSIS EPITHELIAL CELL ABNORMALITIES Atypical squamous cells of undetermined significance A. Ectocervical/Endocervical Specimen Adequacy: Satisfactory of evaluation Transformation zone component identified Patient Information: HPV: High risk HPV RNA testing regardless of pap results. Actual Specimen Date: 04/07/14 LMP If Unknown: irregular Spec Date if unknown: 2010 Post Menopausal?: N Hysterectomy?: N Date Time Test Result Flag (u) Normal Range 04/07/14 1549 HPV RNA Negative Negative The high-risk HPV types detected by the assay include: 16, 18, 31, 33, 35, 39, 45, 51, 52, 56, 58, 59, 66, and 68. Signed (signature on file) Hay Holly MD 1526 This Pap test was evaluated with the assistance of the PellePharmPrep Test Imaging System. Due to cytologic findings at the stand in microscope, comprehensive manual rescreening by a Manager Research And Development may be required. The Pap Smear is a screening test designed to aid in the detection of premalignant and malignant conditions of the uterine cervix. It is not a diagnostic procedure and should not be used as the sole means of detecting cervical cancer. Both false- positive and false- negative reports do occur. Depending on your risk status, a Pap smear should be obtained and evaluated every 1-3 years. END OF REPORT * ML=Testing performed at Main Lab DEPARTMENT OF PATHOLOGY, [address] [place] [address] Hay Holly M.D. Director [facility] # [id number] 7 The high-risk HPV types detected by the assay include: 16, 18, 31, 33, 35, 39, 45, 51, 52, 56, 58, 59, 66, and 68. 8 FASTING 10 HOUR 9 Because ethnic data is not always readily available, this report includes an eGFR for both -Americans and non- Americans. The National Kidney Disease Education Program (NKDEP) does not endorse the use of the MDRD equation for patients that are not between the ages of 18 and 70, are , have extremes of body size, muscle mass, or nutritional status, or are non- or non-. According to the National Kidney Foundation, irrespective of diagnosis, the stage of the disease is based on the level of kidney function: Stage Description GFR(mL/min/1.73 m(2)) 1 Kidney damage with normal or decreased GFR 90 2 Kidney damage with mild decrease in GFR 60-89 3 Moderate decrease in GFR 30-59 4 Severe decrease in GFR 15-29 5 Kidney failure <15 (or dialysis) 10 FASTING 10 HOUR 11 Desirable <150 Borderline high 150-199 High 200-499 Very High >500 12 Desirable <200 Borderline high 200-239 High >239 13 Low <40 Desirable: 40-60 High: >60 14 Desirable <100 Near Optimal 100-129 Borderline high 130-159 High 160-189 Very High >189 Procedures Date CPT Code Description Status 02/23/2017 52494 Laparoscopy Cholecystectomy Completed 02/23/2017 87950 Laparoscopy Cholecystectomy Completed 06/21/2015 Mammogram Completed 05/14/2015 43889 Pulmonary Function><Bronchodil Completed 02/24/2014 Mammogram Completed Encounters Type Date Location Provider CPT E/M Dx Office Visit 06/10/2017 [facility] Qi Johnson M.D. 20315 M51.36 8:50a - [place] I87.2 F41.9 Office Visit 05/27/2017 2:00p [facility] Qi Johnson M.D. 90271 F41.9 - [place] M50.03 R60.9 Office Visit 02/17/2017 10:00a [facility], 54058 K80.20 [facility] Office Visit 01/26/2017 10:15a [facility] Caroline Jean-Baptiste PA-C 56451 M51.36 Of [facility] M54.5 M54.12 Office Visit 11/27/2015 1:40p [facility] Internal Medicine Qi Johnson M.D. 30033 F41.9 - [place] L80 F17.210 Office Visit 09/20/2015 3:00p [facility] Nisa Vasques M.D. 02370 R09.1 - [place] F41.9 Office Visit 06/05/2015 2:40p [facility] Nisa Vasques M.D. 50150 F17.211 - [place] Z12.31 N92.6 Office Visit 05/04/2015 2:40p [facility] Nisa Vasques M.D. 59138 F17.210 - [place] Office Visit 01/18/2015 2:40p [facility] Nisa Vasques M.D. 90974 F41.9 - [place] F17.210 K59.00 Office Visit 11/17/2014 1:40p [facility] Nisa Vasques M.D. 75086 300.00 - [place] V15.82 305.1 Office Visit 09/15/2014 1:40p [facility] Medicine Nisa Vasques M.D. 56861 305.1 - [place] 564.00 Office Visit 08/10/2014 1:40p [facility] Medicine Nisa Vasques M.D. 88858 V15.82 - [place] 627.2 305.1 Office Visit 07/06/2014 1:00p [facility] Internal Jason Vasques M.D. 84523 795.02 - [place] 627.8 300.00 795.01 627.2 Office Visit 05/01/2014 1:00p [facility] Samir Crowley, 05734 721.0 Of [facility] Aldo 721.3 Office Visit 04/07/2014 2:00p [facility] Medicine Nisa Vasques M.D. 20459 V72.31 - [place] V76.19 V76.2 626.4 Office Visit 03/08/2014 4:00p [facility] Medicine Nisa Vasques M.D. 18833 722.52 - [place] 722.4 626.4 272.8 V15.82 Office Visit 02/24/2014 1:00p [facility] Medicine Nisa Vasques M.D. 77904 722.52 - [place] 722.4 535.00 626.4 V17.49 V18.19 V04.81 Plan of Care Future Appointment(s):07/27/2017 9:30 am - Humphrey Worthy M.D. at [facility]07/29/2017 8:30 am - Qi Johnson M.D. at [facility] Internal Medicine - Yjxdobjsa66/26/2018 - Humphrey Worthy M.D.M51.36 Other intervertebral disc degeneration, lumbar clliffU42.80 Other cervical disc disorders, unspecified cervical regionNew Medication:Home Cervical Traction UnitFollow up: 4 weeks
[2017-07-15 10:05] VITALS: BP 130/83
--- NOTE | 2017-07-15 11:28 | UC ---
Respiratory Complaint HPI - HPI Summary HPI Summary: This 51-year-old unemployed lady comes to the urgent care today with complaints of 7 days of cough and nasal drainage bronchial pain. She states she's been exposed to a lot of people who've been sick and her [id number] a few days ago which is caused a lot of stress in her life. She is a smoker. She's had no fevers or chills no body aches or headaches. - History of Current Complaint Chief Complaint: UCRespiratory Stated Complaint: HEAD/CHEST CONGESTION COUGH Time Seen by Provider: 07/15/17 11:20 Hx Obtained From: Patient Hx Last Menstrual Period: August ?: No Onset/Duration: Sudden Onset, Lasting Weeks - 1 Timing: Constant Severity Initially: Moderate Severity Currently: Moderate Pain Intensity: 7 Pain Scale Used: 0-10 Numeric Character: Cough: Productive Aggravating Factors: Nothing Alleviating Factors: Nothing Associated Signs And Symptoms: Positive: Pleuritic Chest Pain, URI, Nasal Congestion - Allergies/Home Medications Allergies/Adverse Reactions: Allergies Allergy/AdvReac Type Severity Reaction Status Date / Time Penicillins Allergy Rash Verified 07/15/17 10:00 Amoxicillin Allergy Hives Uncoded 02/23/17 07:45 BANDAIDS Allergy Rash Uncoded 02/23/17 07:45 PMH/Surg Hx/FS Hx/Imm Hx Previously Healthy: No - chronic back pain GI/ History: Gastroesophageal Reflux Psychological History: Depression Other History Of: Negative For: HIV, Hepatitis B, Hepatitis C - Surgical History Surgical History: Yes Surgery Procedure, Year, and Place: TUBAL 1995. TENDON RELEASE LT THUMB 03/01, GALLBLADDER JAN 2017 - Family History Known Family History: Positive: Cardiac Disease, Hypertension, Diabetes - Social History Occupation: Unemployed Lives: With Family Alcohol Use: None Substance Use Type: None, Prescribed Smoking Status (MU): Light Every Day Tobacco Smoker Type: Cigarettes Amount Used/How Often: 1/2 PPD-3/4 PPD X 30+YEARS Length of Time of Smoking/Using Tobacco: 36n years Have You Smoked in the Last Year: Yes Household Exposure Type: Cigarettes Cessation Counseling: Counseled 3+Min - 10 Min - Immunization History Most Recent Influenza Vaccination: 2015 Review of Systems Constitutional: Negative Skin: Negative Eyes: Negative ENT: Sinus Congestion Respiratory: Cough, Other - Pleuritic bronchial pain with cough and deep inspiration Cardiovascular: Negative Gastrointestinal: Negative Genitourinary: Negative Motor: Negative Neurovascular: Negative Musculoskeletal: Negative Neurological: Negative Psychological: Negative Is Patient Immunocompromised?: No All Other Systems Reviewed And Are Negative: Yes Physical Exam Triage Information Reviewed: Yes Appearance: Well-Appearing, No Pain Distress, Ill-Appearing - Mild Vital Signs: Initial Vital Signs Temp 98 F 07/15/17 10:02 Pulse 92 07/15/17 10:02 Resp 16 07/15/17 10:02 BP 130/83 07/15/17 10:02 Pulse Ox 99 07/15/17 10:02 Vital Signs Reviewed: Yes Eye Exam: Normal Eyes: Positive: Conjunctiva Clear ENT Exam: Normal ENT: Positive: Normal ENT inspection, Hearing grossly normal, Pharynx normal, Nasal congestion, Nasal drainage, TMs normal, Uvula midline. Negative: Tonsillar swelling, Tonsillar exudate, Trismus, Muffled voice, Hoarse voice, Dental tenderness, Sinus tenderness Dental Exam: Normal Neck exam: Normal Neck: Positive: Supple, Nontender, No Lymphadenopathy Respiratory Exam: Normal Respiratory: Positive: Chest non-tender, Lungs clear, Normal breath sounds, No respiratory distress, No accessory muscle use Cardiovascular Exam: Normal Cardiovascular: Positive: RRR, No Murmur, Pulses Normal, Brisk Capillary Refill Musculoskeletal Exam: Normal Musculoskeletal: Positive: Strength Intact, ROM Intact, No Edema Neurological Exam: Normal Neurological: Positive: Alert, Muscle Tone Normal Psychological Exam: Normal Skin Exam: Normal UC Diagnostic Evaluation - Laboratory O2 Sat by Pulse Oximetry: 99 Respiratory Course/Dx - Course Course Of Treatment: Quit smoking information provided plan to follow up with primary care doctor discussed with patient. Emotional support provided for recent loss. Will Rx with Zithromax and albuterol inhaler follow with primary care provider as planned - Differential Dx/Diagnosis Provider Diagnoses: Nicotine dependence,bronchitis, Discharge - Sign-Out/Discharge Documenting (check all that apply): Discharge - Discharge Plan Condition: Stable Disposition: HOME Prescriptions: Albuterol HFA INHALER* [Ventolin HFA Inhaler*] 2 puff INH Q4H PRN #1 mdi PRN Reason: cough/chest tightness Azithromycin TAB* [Zithromax TAB (Z-EMIR) 250 mg #6 tabs] 2 tab PO .TODAY, THEN 1 DAILY #1 emir Patient Education Materials: How to Stop Smoking (ED), How to Use a Metered- Dose Inhaler (ED), Acute Bronchitis (ED), Acute Cough (ED), Safe Use of Cough and Cold Medicines (ED) Referrals: Qi Johnson MD [Primary Care Provider] - As Soon As Possible Additional Instructions: Good luck and requested quit smoking remembered and never give up. Follow up with Dr. Johnson for additional assistance with smoking cessation as we talked about. I concluded information for [place] [employer] and [employer] where we have us 3 smoking cessation support that might be of interest to you - Billing Disposition and Condition Condition: STABLE Disposition: HOME
== END 2017-07-15 11:34 | disposition home or self-care (01) ==
LOC: UCEAST 09:47
DX: J40 Bronchitis, not specified as acute or chronic (principal); K21.9 Gastro-esophageal reflux disease without esophagitis; F32.9 Major depressive disorder, single episode, unspecified; Z88.0 Allergy status to penicillin; Z91.048 Other nonmedicinal substance allergy status; Z71.6 Tobacco abuse counseling; F17.210 Nicotine dependence, cigarettes, uncomplicated
CPT/HCPCS: 99212; G0463

== ENCOUNTER 2020-07-26 07:30 | Inpatient (IN) ==
[~2020-07-26 07:30] MED LIST: Buffered Lidocaine 1% SYRIN 1 ml INTRADERM ONE; Gentamicin ADULT 400 MG in NS 0.9% 100 ml BAG 100 ML IVPB SCH; HYDROmorphone 1 MG/1 ML SYRINGE IV PRN; Lactated Ringers 1000 ml BAG 1,000 ML IV SCH; Naloxone 0.4 mg VIAL 0.4 mg/ml 1 ml VIAL IV PRN; Prochlorperazine 5 mg/ml 2 ml VIAL (10 mg) IV PRN; diPHENhydraMINE IV 50 MG/ML 1 ml VIAL (BENADRYL) IV PRN
[2020-07-26] MEDS ORDERED: Clindamycin 900 MG/D5W BAG 900 MG/50 ML BAG IVPB ONE (09:42)
[2020-07-26] MEDS ORDERED: Midazolam 2 mg/2 ml VIAL 1 mg/ml 2 ml VIAL (2 mg) ONE (10:07)
[2020-07-26] MEDS ORDERED: fentaNYL 250 mcg/5 ml 50 MCG/ML 5 ml VIAL (250 MCG) ONE (10:07)
[2020-07-26] MEDS ORDERED: Propofol 10 MG/ML 20 ML BTL ONE (10:09)
[2020-07-26] MEDS ORDERED: Rocuronium 50 mg VIAL 10 mg/ml 5 ml VIAL (50 mg) ONE (10:09)
[2020-07-26] MEDS ORDERED: Bupivacaine 0.25% EPI 200,000 30 ML SDV ONE (10:40)
[2020-07-26] MEDS ORDERED: HYDROmorphone 1 MG/1 ML SYRINGE ONE (11:06)
[2020-07-26] MEDS ORDERED: Lidocaine 2% PF 5 ML VIAL ONE (11:08)
[2020-07-26] MEDS ORDERED: Ketamine HCL 50 mg/ml 10 ml VIAL (500 MG) ONE (11:17)
[2020-07-26] MEDS ORDERED: Phenylephrine 40 mcg/mL 10mL (400mcg) SYRINGE ONE (11:31)
[2020-07-26] MEDS ORDERED: Dexamethasone IV 4 MG/ML VIAL 1 ml VIAL ONE (11:37)
[2020-07-26] MEDS ORDERED: Metoprolol Tartrate 5 mg VIAL 5 ml VIAL (1 mg/ml) ONE ×2 (13:07→13:55)
[2020-07-26] MEDS ORDERED: ROPIVACAINE 5 MG/ML 30 ML BTL (0.5%) ONE (14:42)
[2020-07-26] MEDS ORDERED: Ondansetron 4 mg VIAL 2 MG/ML 2 ml VIAL ONE (14:59)
[2020-07-26] MEDS ORDERED: Sugammadex 500 MG/5 ML 5 ml VIAL IV PUSH ONE (14:59)
[2020-07-26] MEDS ORDERED: Nicotine GUM 4MG FRUIT FLAVOR PO PRN (15:22)
[2020-07-26] MEDS ORDERED: HYDROmorphone 0.5 MG/0.5 ML SYRINGE IV SLOW PU PRN (15:41)
[2020-07-26] MEDS ORDERED: HYDROmorphone 1 MG/1 ML SYRINGE IV SLOW PU PRN ×2 (15:41→20:22)
[2020-07-26] MEDS ORDERED: Ondansetron 4 mg VIAL 2 MG/ML 2 ml VIAL IV PRN (15:47)
[2020-07-26 19:37] LABS: ABS Lymphocytes 0.8 10^3/ul (1.0-4.8); ABS Monocytes 0.5 10^3/ul (0-0.8); ABS Neutrophils 8.3 10^3/ul (1.5-7.7); Hematocrit 37 % (35-47); Hemoglobin 12.4 g/dL (12.0-16.0); Lymphocyte % 8.6 %; Mean Corpuscular HGB Conc 33 g/dL (31-36); Mean Corpuscular Hemoglobin 35 pg (27-31); Mean Corpuscular Volume 103 fL (80-97); Mean Platelet Volume 6.4 fL (7.4-10.4); Platelet Count 339 10^3/uL (150-450); Red Cell Distribution Width 14 % (10-15); White Blood Count 9.6 10^3/uL (3.5-10.8)
[2020-07-26] MEDS ORDERED: NS 0.9% 500 ML BAG IV ONE (20:00)
[2020-07-26] MEDS: Lactated Ringers 1000 ml BAG 1,000 ML IV SCH (21:24)
[2020-07-26] MEDS: Venlafaxine XR 75 mg PO SCH (21:28)
[2020-07-27] MEDS ORDERED: NS 0.9% 500 ml BAG 500 ML IV ONE (06:20)
[2020-07-27 06:32] LABS: ABS Lymphocytes 1.8 10^3/ul (1.0-4.8); ABS Neutrophils 5.9 10^3/ul (1.5-7.7); Eosinophil % 0.1 %; Hematocrit 31 % (35-47); Hemoglobin 10.6 g/dL (12.0-16.0); Lymphocyte % 21.1 %; Mean Corpuscular HGB Conc 34 g/dL (31-36); Mean Corpuscular Hemoglobin 34 pg (27-31); Mean Corpuscular Volume 102 fL (80-97); Mean Platelet Volume 6.4 fL (7.4-10.4); Platelet Count 297 10^3/uL (150-450); Red Blood Count 3.08 10^6 /uL (3.70-4.87); Red Cell Distribution Width 13 % (10-15); White Blood Count 8.7 10^3/uL (3.5-10.8)
[2020-07-27 06:48] LABS: Calcium 8.3 mg/dL (8.6-10.3); EGFR African American 75.4 (>60); EGFR Non-African American 62.3 (>60); Potassium 4.3 mmol/L (3.5-5.0)
[2020-07-27] MEDS: Nicotine PATCH 14 MG/24 HR PATCH TRANSDERM SCH (08:44)
[2020-07-27] MEDS: Heparin 5000 UNITS/ML 1 mL VIAL SUBCUT SCH ×2 (08:45→20:48)
[2020-07-27] MEDS: Lactated Ringers 1000 ml BAG 1,000 ML IV SCH (12:04)
[2020-07-27 17:14] LABS: Hematocrit 34 % (35-47); Hemoglobin 11.3 g/dL (12.0-16.0); Mean Corpuscular HGB Conc 33 g/dL (31-36); Mean Corpuscular Hemoglobin 35 pg (27-31); Mean Corpuscular Volume 107 fL (80-97); Mean Platelet Volume 7.5 fL (7.4-10.4); Platelet Count 157 10^3/uL (150-450); Red Blood Count 3.22 10^6 /uL (3.70-4.87); Red Cell Distribution Width 14 % (10-15); White Blood Count 8.9 10^3/uL (3.5-10.8)
[2020-07-27 17:26] LABS: BUN/Creatinine Ratio 18.5 (8-20); Calcium 8.6 mg/dL (8.6-10.3); EGFR African American 77.3 (>60); EGFR Non-African American 63.9 (>60)
[2020-07-27 17:29] LABS: Potassium 4.6 mmol/L (3.5-5.0)
[2020-07-27] MEDS: Venlafaxine XR 75 mg PO SCH (20:48)
[2020-07-27] MEDS: HYDROmorphone 0.5 MG/0.5 ML SYRINGE IV SLOW PU PRN ×2 (20:56→23:57)
[2020-07-28] MEDS: HYDROmorphone 0.5 MG/0.5 ML SYRINGE IV SLOW PU PRN ×4 (03:35→22:01)
[2020-07-28 05:54] LABS: Hematocrit 33 % (35-47); Hemoglobin 11.3 g/dL (12.0-16.0); Mean Corpuscular HGB Conc 34 g/dL (31-36); Mean Corpuscular Hemoglobin 34 pg (27-31); Mean Corpuscular Volume 100 fL (80-97); Mean Platelet Volume 6.5 fL (7.4-10.4); Platelet Count 297 10^3/uL (150-450); Red Blood Count 3.31 10^6 /uL (3.70-4.87); Red Cell Distribution Width 13 % (10-15); White Blood Count 8.9 10^3/uL (3.5-10.8)
[2020-07-28 06:14] LABS: BUN/Creatinine Ratio 18.8 (8-20); Calcium 8.5 mg/dL (8.6-10.3); EGFR African American 90.8 (>60); Potassium 4.2 mmol/L (3.5-5.0)
[2020-07-28 07:22] LABS: ABS Lymphocytes 0.7 10^3/ul (1.0-4.8); ABS Monocytes 0.4 10^3/ul (0-0.8); ABS Neutrophils 7.7 10^3/ul (1.5-7.7); Lymphocyte % 8.4 %
[2020-07-28] MEDS: Heparin 5000 UNITS/ML 1 mL VIAL SUBCUT SCH ×2 (08:59→20:53)
[2020-07-28] MEDS: Nicotine PATCH 14 MG/24 HR PATCH TRANSDERM SCH (09:02)
[2020-07-28] MEDS ORDERED: Lidocaine 2% PF 5 ML VIAL ONE (09:25)
[2020-07-28] MEDS ORDERED: Propofol 10 MG/ML 20 ML BTL ONE (09:25)
[2020-07-28] MEDS ORDERED: fentaNYL 250 mcg/5 ml 50 MCG/ML 5 ml VIAL (250 MCG) ONE (09:25)
[2020-07-28] MEDS ORDERED: Rocuronium 50 mg VIAL 10 mg/ml 5 ml VIAL (50 mg) ONE ×2 (09:25→11:51)
[2020-07-28] MEDS ORDERED: Ondansetron 4 mg VIAL 2 MG/ML 2 ml VIAL ONE (09:25)
[2020-07-28] MEDS ORDERED: Midazolam 5 mg/5 ml VIAL 1 mg/ml 5 ml VIAL (5 mg) ONE (09:25)
[2020-07-28] MEDS ORDERED: Dexamethasone IV 4 MG/ML VIAL 1 ml VIAL ONE (09:25)
[2020-07-28] MEDS ORDERED: Phenylephrine IV 10 MG/ML 1 ml VIAL ONE (09:26)
[2020-07-28] MEDS ORDERED: Bupivacaine 0.25% EPI 200,000 30 ML SDV ONE (09:28)
[2020-07-28] MEDS ORDERED: D5W 1/2 NS KCl 20 meq 1000 ml 1,000 ML IV SCH (10:00)
[2020-07-28] MEDS ORDERED: Ciprofloxacin 400mg IVPREMIX 400 MG/200 ML BAG ONE (10:09)
[2020-07-28] MEDS ORDERED: metroNIDAZOLE IV 500 MG/100ML 500 MG/100 ML BAG ONE (10:10)
[2020-07-28] MEDS ORDERED: HYDROmorphone 1 MG/1 ML SYRINGE ONE ×4 (10:23→15:33)
[2020-07-28] MEDS ORDERED: Ciprofloxacin 400mg IVPREMIX 400 MG/200 ML BAG IVPB SCH (11:00)
[2020-07-28] MEDS ORDERED: metroNIDAZOLE IV 500 MG/100ML 500 MG/100 ML BAG IVPB SCH (11:00)
[2020-07-28] MEDS ORDERED: Levalbuterol 0.63MG/3ML NEB UNIT OF USE INH PRN (11:41)
[2020-07-28] MEDS ORDERED: HYDROmorphone 1 MG/1 ML SYRINGE IV PRN (11:41)
[2020-07-28] MEDS ORDERED: Naloxone 0.4 mg VIAL 0.4 mg/ml 1 ml VIAL IV PRN (11:41)
[2020-07-28] MEDS ORDERED: Ondansetron 4 mg VIAL 2 MG/ML 2 ml VIAL IV PRN (11:41)
[2020-07-28] MEDS ORDERED: Phenylephrine 1% NASAL 15 ML BOT ONE (12:25)
[2020-07-28] MEDS ORDERED: Levalbuterol 1.25MG/0.5ML NEB.SOL ONE (14:34)
[2020-07-28] MEDS ORDERED: Acetaminophen IV 1 GM/100ML 0 ML ONE (15:39)
[2020-07-28] MEDS: metroNIDAZOLE IV 500 MG/100ML 500 MG/100 ML BAG IVPB SCH (19:57)
[2020-07-28] MEDS: Venlafaxine XR 75 mg PO SCH (20:52)
[2020-07-28] MEDS: Acetaminophen IV 1000 MG/100ML IVPB SCH (23:34)
[2020-07-28] MEDS: Ciprofloxacin 400mg IVPREMIX 400 MG/200 ML BAG IVPB SCH (23:51)
[2020-07-29] MEDS ORDERED: SPIRIVA Respimat (tiotropium) 2.5 mcg/inh Inhaler INH ONE (00:34)
[2020-07-29] MEDS: metroNIDAZOLE IV 500 MG/100ML 500 MG/100 ML BAG IVPB SCH ×3 (02:43→19:53)
[2020-07-29] MEDS: HYDROmorphone 0.5 MG/0.5 ML SYRINGE IV SLOW PU PRN ×7 (02:43→21:34)
[2020-07-29 04:33] LABS: ABS Lymphocytes 0.9 10^3/ul (1.0-4.8); ABS Monocytes 0.4 10^3/ul (0-0.8); ABS Neutrophils 5.1 10^3/ul (1.5-7.7); Eosinophil % 0.1 %; Hematocrit 33 % (35-47); Hemoglobin 11.2 g/dL (12.0-16.0); Lymphocyte % 13.9 %; Mean Corpuscular HGB Conc 34 g/dL (31-36); Mean Corpuscular Hemoglobin 35 pg (27-31); Mean Corpuscular Volume 102 fL (80-97); Mean Platelet Volume 6.6 fL (7.4-10.4); Platelet Count 280 10^3/uL (150-450); Red Blood Count 3.25 10^6 /uL (3.70-4.87); Red Cell Distribution Width 13 % (10-15); White Blood Count 6.4 10^3/uL (3.5-10.8)
[2020-07-29 04:49] LABS: BUN/Creatinine Ratio 15.4 (8-20); Calcium 7.5 mg/dL (8.6-10.3); EGFR African American 93.5 (>60); EGFR Non-African American 77.3 (>60); Magnesium 1.2 mg/dL (1.9-2.7); Phosphorus 3.3 mg/dL (2.5-5.0); Potassium 4.3 mmol/L (3.5-5.0)
[2020-07-29] MEDS ORDERED: Magnesium Sulfate IV 3 GM in NS 0.9% 100 ml BAG 100 ML IVPB ONE (04:50)
[2020-07-29] MEDS: Albuterol HFA INHALER 8 gm MDI INH PRN (05:14)
[2020-07-29] MEDS ORDERED: NS 0.9% 100 ml BAG 100 ML ONE (05:21)
[2020-07-29] MEDS: Albuterol/Ipratropium NEB.SOL (2.5/0.5 MG) 3 ML NEB.SOLN INH SCH ×5 (07:13→23:38)
[2020-07-29] MEDS: SPIRIVA Respimat (tiotropium) 2.5 mcg/inh Inhaler INH SCH (07:17)
[2020-07-29] MEDS: Acetaminophen IV 1000 MG/100ML IVPB SCH ×2 (08:13→15:47)
[2020-07-29] MEDS ORDERED: Perflutren Lipid Microsphere 3 ML VIAL ONE (08:59)
[2020-07-29] MEDS: Nicotine PATCH 14 MG/24 HR PATCH TRANSDERM SCH (09:52)
[2020-07-29] MEDS: Pantoprazole VIAL 40 MG VIAL IV SCH (09:53)
[2020-07-29] MEDS: Heparin 5000 UNITS/ML 1 mL VIAL SUBCUT SCH ×2 (09:53→21:34)
[2020-07-29] MEDS: Ciprofloxacin 400mg IVPREMIX 400 MG/200 ML BAG IVPB SCH (11:13)
[2020-07-29] MEDS ORDERED: Furosemide 20 mg/2 ml IV VIAL IV SLOW PU ONE (11:23)
[2020-07-29] MEDS: Venlafaxine XR 75 mg PO SCH (21:34)
[2020-07-30] MEDS: HYDROmorphone 0.5 MG/0.5 ML SYRINGE IV SLOW PU PRN ×5 (00:01→19:48)
[2020-07-30] MEDS: Acetaminophen IV 1000 MG/100ML IVPB SCH (00:48)
[2020-07-30] MEDS: Ciprofloxacin 400mg IVPREMIX 400 MG/200 ML BAG IVPB SCH ×2 (00:48→10:48)
[2020-07-30] MEDS: Albuterol/Ipratropium NEB.SOL (2.5/0.5 MG) 3 ML NEB.SOLN INH SCH ×6 (01:59→23:09)
[2020-07-30] MEDS: metroNIDAZOLE IV 500 MG/100ML 500 MG/100 ML BAG IVPB SCH ×3 (04:54→19:49)
[2020-07-30 05:27] LABS: Hematocrit 30 % (35-47); Hemoglobin 10.1 g/dL (12.0-16.0); Mean Corpuscular HGB Conc 34 g/dL (31-36); Mean Corpuscular Hemoglobin 34 pg (27-31); Mean Corpuscular Volume 101 fL (80-97); Mean Platelet Volume 6.6 fL (7.4-10.4); Platelet Count 287 10^3/uL (150-450); Red Blood Count 2.94 10^6 /uL (3.70-4.87); Red Cell Distribution Width 13 % (10-15); White Blood Count 7.8 10^3/uL (3.5-10.8)
[2020-07-30 05:48] LABS: Albumin 2.6 g/dL (3.2-5.2); Albumin/Globulin Ratio 1.1 (1-3); BUN/Creatinine Ratio 13.3 (8-20); Calcium 7.8 mg/dL (8.6-10.3); EGFR Non-African American 71.9 (>60); Globulin 2.3 g/dL (2-4); Magnesium 2.2 mg/dL (1.9-2.7); Phosphorus 2.6 mg/dL (2.5-5.0); Potassium 3.9 mmol/L (3.5-5.0); Total Bilirubin 0.4 mg/dL (0.2-1.0); Total Protein 4.9 g/dL (6.4-8.9)
[2020-07-30] MEDS ORDERED: Potassium Chloride LIQUID 20 MEQ/15 ML LIQUID PO ONE (06:34)
[2020-07-30] MEDS: SPIRIVA Respimat (tiotropium) 2.5 mcg/inh Inhaler INH SCH (07:20)
[2020-07-30] MEDS: Heparin 5000 UNITS/ML 1 mL VIAL SUBCUT SCH ×2 (09:11→21:02)
[2020-07-30] MEDS: Nicotine PATCH 14 MG/24 HR PATCH TRANSDERM SCH (09:11)
[2020-07-30] MEDS: Pantoprazole VIAL 40 MG VIAL IV SCH (09:11)
[2020-07-30] MEDS ORDERED: KCL 20 MEQ/100 ML IVPREMIX 20 MEQ/100 ML BAG IV ONE (10:00)
[2020-07-30] MEDS ORDERED: Furosemide 20 mg/2 ml IV VIAL IV ONE ×2 (10:27→14:01)
[2020-07-30] MEDS ORDERED: Acetaminophen IV 1000 MG/100ML IVPB PRN (11:08)
[2020-07-30] MEDS ORDERED: Albumin Human 25% 25 GM/100 ML BTL IV ONE ×2 (14:30)
[2020-07-30] MEDS: Cefepime 2 GM in Dextrose 2 GM/50 ML BAG IV SCH (16:23)
[2020-07-30] MEDS: Venlafaxine XR 75 mg PO SCH (21:02)
[2020-07-31] MEDS: HYDROmorphone 0.5 MG/0.5 ML SYRINGE IV SLOW PU PRN ×3 (02:11→15:01)
[2020-07-31] MEDS: Albuterol/Ipratropium NEB.SOL (2.5/0.5 MG) 3 ML NEB.SOLN INH SCH ×6 (02:28→22:52)
[2020-07-31] MEDS: metroNIDAZOLE IV 500 MG/100ML 500 MG/100 ML BAG IVPB SCH ×3 (04:07→22:47)
[2020-07-31] MEDS: Cefepime 2 GM in Dextrose 2 GM/50 ML BAG IV SCH ×2 (04:07→16:04)
[2020-07-31 04:30] LABS: ABS Eosinophils 0.1 10^3/ul (0-0.6); ABS Lymphocytes 0.6 10^3/ul (1.0-4.8); ABS Monocytes 0.5 10^3/ul (0-0.8); Eosinophil % 1.4 %; Hematocrit 28 % (35-47); Hemoglobin 9.3 g/dL (12.0-16.0); Mean Corpuscular HGB Conc 34 g/dL (31-36); Mean Corpuscular Hemoglobin 34 pg (27-31); Mean Corpuscular Volume 101 fL (80-97); Mean Platelet Volume 6.5 fL (7.4-10.4); Nucleated Red Blood Cells % 0.1; Platelet Count 282 10^3/uL (150-450); Red Blood Count 2.72 10^6 /uL (3.70-4.87); Red Cell Distribution Width 14 % (10-15); White Blood Count 9.2 10^3/uL (3.5-10.8)
[2020-07-31 04:45] LABS: BUN/Creatinine Ratio 12.1 (8-20); Calcium 8.1 mg/dL (8.6-10.3); EGFR African American 78.2 (>60); EGFR Non-African American 64.7 (>60); Potassium 3.8 mmol/L (3.5-5.0)
[2020-07-31] MEDS ORDERED: Furosemide 20 mg/2 ml IV VIAL IV ONE (05:38)
[2020-07-31] MEDS ORDERED: Potassium Chloride LIQUID 20 MEQ/15 ML LIQUID PO ONE (05:45)
[2020-07-31] MEDS ORDERED: Potassium Chlor 20 meq TAB.ER PO ONE (05:58)
[2020-07-31] MEDS: SPIRIVA Respimat (tiotropium) 2.5 mcg/inh Inhaler INH SCH (06:59)
[2020-07-31] MEDS: Heparin 5000 UNITS/ML 1 mL VIAL SUBCUT SCH (09:10)
[2020-07-31] MEDS: Cholestyramine Resin 4 GM POWDER PO SCH ×2 (09:10→10:08)
[2020-07-31] MEDS: Pantoprazole VIAL 40 MG VIAL IV SCH (09:10)
[2020-07-31] MEDS: Nicotine PATCH 14 MG/24 HR PATCH TRANSDERM SCH (09:11)
[2020-07-31] MEDS ORDERED: Furosemide 20 mg/2 ml IV VIAL IV SLOW PU ONE (14:31)
[2020-07-31] MEDS ORDERED: Ondansetron 4 mg VIAL 2 MG/ML 2 ml VIAL ONE (14:51)
[2020-07-31] MEDS: Ondansetron 4 mg VIAL 2 MG/ML 2 ml VIAL IV PRN (14:55)
[2020-07-31] MEDS ORDERED: Furosemide 20 mg/2 ml IV VIAL ONE (14:58)
[2020-07-31] MEDS ORDERED: Enoxaparin 40 MG/0.4 ML SYR ONE (17:43)
[2020-07-31] MEDS: Enoxaparin 40 MG/0.4 ML SYR SUBCUT SCH (17:45)
[2020-07-31] MEDS: Venlafaxine XR 75 mg PO SCH (22:46)
[2020-08-01] MEDS: Albuterol/Ipratropium NEB.SOL (2.5/0.5 MG) 3 ML NEB.SOLN INH SCH ×4 (01:58→19:32)
[2020-08-01] MEDS: HYDROmorphone 0.5 MG/0.5 ML SYRINGE IV SLOW PU PRN ×5 (05:47→21:21)
[2020-08-01] MEDS: Cefepime 2 GM in Dextrose 2 GM/50 ML BAG IV SCH ×2 (05:54→16:03)
[2020-08-01] MEDS: metroNIDAZOLE IV 500 MG/100ML 500 MG/100 ML BAG IVPB SCH ×3 (06:30→21:54)
[2020-08-01 07:11] LABS: ABS Eosinophils 0.1 10^3/ul (0-0.6); ABS Lymphocytes 0.7 10^3/ul (1.0-4.8); ABS Monocytes 0.7 10^3/ul (0-0.8); ABS Neutrophils 6.8 10^3/ul (1.5-7.7); Eosinophil % 1.5 %; Hematocrit 28 % (35-47); Hemoglobin 9.4 g/dL (12.0-16.0); Mean Corpuscular HGB Conc 34 g/dL (31-36); Mean Corpuscular Hemoglobin 34 pg (27-31); Mean Corpuscular Volume 101 fL (80-97); Mean Platelet Volume 6.7 fL (7.4-10.4); Nucleated Red Blood Cells % 0.1; Platelet Count 298 10^3/uL (150-450); Red Blood Count 2.76 10^6 /uL (3.70-4.87); Red Cell Distribution Width 13 % (10-15); White Blood Count 8.3 10^3/uL (3.5-10.8)
[2020-08-01] MEDS: SPIRIVA Respimat (tiotropium) 2.5 mcg/inh Inhaler INH SCH (07:18)
[2020-08-01 07:55] LABS: Anion Gap 8 mmol/L (2-11); BUN/Creatinine Ratio 15.4 (8-20); Blood Urea Nitrogen 14 mg/dL (6-24); CO2 Carbon Dioxide 24 mmol/L (22-32); Calcium 8.5 mg/dL (8.6-10.3); Chloride 105 mmol/L (101-111); EGFR African American 78.2 (>60); EGFR Non-African American 64.7 (>60); Glucose 90 mg/dL (70-100); Potassium 3.5 mmol/L (3.5-5.0); Sodium 137 mmol/L (135-145)
[2020-08-01 07:58] LABS: Total Iron Binding Capacity 204 mcg/dL (250-450); Transferrin 146 mg/dL (203-362)
[2020-08-01 08:06] LABS: % Iron Saturation 10 % (15-55); Iron < 20 ug/dL (50-212); Unsaturated Iron Binding < 189 ug/dL
[2020-08-01 08:15] LABS: Ferritin 165.4 ng/mL (11-307)
[2020-08-01 08:19] LABS: Folate 8.78 ng/mL (>3.99)
[2020-08-01 08:20] LABS: Vitamin B12 692 pg/mL (180-914)
[2020-08-01] MEDS: Nicotine PATCH 14 MG/24 HR PATCH TRANSDERM SCH (08:57)
[2020-08-01] MEDS: Pantoprazole VIAL 40 MG VIAL IV SCH (08:57)
[2020-08-01] MEDS: Iron Sucrose 200 MG in NS 0.9% 100 ml BAG 100 ML IVPB SCH (11:04)
[2020-08-01] MEDS: Ondansetron 4 mg VIAL 2 MG/ML 2 ml VIAL IV PRN ×2 (12:50→21:21)
[2020-08-01] MEDS: Venlafaxine XR 75 mg PO SCH (21:51)
[2020-08-01] MEDS: Enoxaparin 40 MG/0.4 ML SYR SUBCUT SCH (21:52)
[2020-08-02] MEDS: Albuterol/Ipratropium NEB.SOL (2.5/0.5 MG) 3 ML NEB.SOLN INH SCH (01:25)
[2020-08-02] MEDS: Ondansetron 4 mg VIAL 2 MG/ML 2 ml VIAL IV PRN ×3 (03:02→17:44)
[2020-08-02] MEDS: HYDROmorphone 0.5 MG/0.5 ML SYRINGE IV SLOW PU PRN ×5 (03:03→20:45)
[2020-08-02] MEDS: Cefepime 2 GM in Dextrose 2 GM/50 ML BAG IV SCH ×2 (04:20→16:26)
[2020-08-02] MEDS ORDERED: Albuterol/Ipratropium NEB.SOL (2.5/0.5 MG) 3 ML NEB.SOLN INH PRN (04:27)
[2020-08-02] MEDS: metroNIDAZOLE IV 500 MG/100ML 500 MG/100 ML BAG IVPB SCH ×3 (05:28→21:56)
[2020-08-02 05:39] LABS: Hematocrit 28 % (35-47); Hemoglobin 9.3 g/dL (12.0-16.0); Mean Corpuscular HGB Conc 34 g/dL (31-36); Mean Corpuscular Hemoglobin 34 pg (27-31); Mean Corpuscular Volume 100 fL (80-97); Mean Platelet Volume 6.5 fL (7.4-10.4); Platelet Count 331 10^3/uL (150-450); Red Blood Count 2.76 10^6 /uL (3.70-4.87); Red Cell Distribution Width 14 % (10-15)
[2020-08-02 05:55] LABS: BUN/Creatinine Ratio 18.4 (8-20); Calcium 8.4 mg/dL (8.6-10.3); EGFR African American 96.3 (>60); EGFR Non-African American 79.6 (>60); Magnesium 1.8 mg/dL (1.9-2.7); Potassium 3.5 mmol/L (3.5-5.0)
[2020-08-02] MEDS ORDERED: Magnesium Sulfate IV 3 GM in NS 0.9% 100 ml BAG 100 ML IVPB ONE (06:30)
[2020-08-02] MEDS: Albuterol HFA INHALER 8 gm MDI INH PRN (07:57)
[2020-08-02] MEDS: SPIRIVA Respimat (tiotropium) 2.5 mcg/inh Inhaler INH SCH (07:58)
[2020-08-02] MEDS ORDERED: Iohexol 300 (CONTRAST) 10 ML SDV IV ONE (08:40)
[2020-08-02] MEDS: Nicotine PATCH 14 MG/24 HR PATCH TRANSDERM SCH (09:46)
[2020-08-02] MEDS: Pantoprazole VIAL 40 MG VIAL IV SCH (09:48)
[2020-08-02] MEDS: Cholestyramine Resin 4 GM POWDER PO SCH (09:49)
[2020-08-02] MEDS: Iron Sucrose 200 MG in NS 0.9% 100 ml BAG 100 ML IVPB SCH (09:50)
[2020-08-02] MEDS ORDERED: Furosemide 20 mg/2 ml IV VIAL IV ONE (10:20)
[2020-08-02] MEDS: Venlafaxine XR 75 mg PO SCH (20:31)
[2020-08-02] MEDS: Enoxaparin 40 MG/0.4 ML SYR SUBCUT SCH (20:32)
[2020-08-03] MEDS: Cefepime 2 GM in Dextrose 2 GM/50 ML BAG IV SCH ×2 (03:51→16:32)
[2020-08-03] MEDS: metroNIDAZOLE IV 500 MG/100ML 500 MG/100 ML BAG IVPB SCH ×3 (05:45→22:28)
[2020-08-03] MEDS ORDERED: Furosemide 20 mg/2 ml IV VIAL IV SLOW PU SCH (09:00)
[2020-08-03] MEDS: Nicotine PATCH 14 MG/24 HR PATCH TRANSDERM SCH (09:08)
[2020-08-03] MEDS: Iron Sucrose 200 MG in NS 0.9% 100 ml BAG 100 ML IVPB SCH (09:11)
[2020-08-03] MEDS: SPIRIVA Respimat (tiotropium) 2.5 mcg/inh Inhaler INH SCH (10:12)
[2020-08-03] MEDS: Albuterol HFA INHALER 8 gm MDI INH PRN (10:14)
[2020-08-03] MEDS: Ondansetron 4 mg VIAL 2 MG/ML 2 ml VIAL IV PRN (13:14)
[2020-08-03] MEDS: Enoxaparin 40 MG/0.4 ML SYR SUBCUT SCH (20:43)
[2020-08-03] MEDS: Venlafaxine XR 75 mg PO SCH (20:44)
[2020-08-04] MEDS: Cefepime 2 GM in Dextrose 2 GM/50 ML BAG IV SCH ×2 (04:21→16:52)
[2020-08-04] MEDS: metroNIDAZOLE IV 500 MG/100ML 500 MG/100 ML BAG IVPB SCH ×3 (05:28→22:30)
[2020-08-04] MEDS: SPIRIVA Respimat (tiotropium) 2.5 mcg/inh Inhaler INH SCH (08:20)
[2020-08-04] MEDS: Albuterol HFA INHALER 8 gm MDI INH PRN (08:20)
[2020-08-04] MEDS: Iron Sucrose 200 MG in NS 0.9% 100 ml BAG 100 ML IVPB SCH (09:13)
[2020-08-04] MEDS: Cholestyramine Resin 4 GM POWDER PO SCH (09:13)
[2020-08-04] MEDS: Nicotine PATCH 14 MG/24 HR PATCH TRANSDERM SCH (09:17)
[2020-08-04] MEDS ORDERED: Furosemide 20 mg/2 ml IV VIAL IV SLOW PU ONE (12:49)
[2020-08-04] MEDS ORDERED: Magnesium Sulfate IV 1GM/100ML 1 GM/100 ML BAG IV ONE (12:49)
[2020-08-04] MEDS: Ondansetron 4 mg VIAL 2 MG/ML 2 ml VIAL IV PRN (15:13)
[2020-08-04] MEDS: Venlafaxine XR 75 mg PO SCH (22:30)
[2020-08-04] MEDS: Enoxaparin 40 MG/0.4 ML SYR SUBCUT SCH (22:30)
[2020-08-05] MEDS: Cefepime 2 GM in Dextrose 2 GM/50 ML BAG IV SCH ×2 (04:29→16:29)
[2020-08-05] MEDS: metroNIDAZOLE IV 500 MG/100ML 500 MG/100 ML BAG IVPB SCH ×3 (06:50→22:39)
[2020-08-05] MEDS: SPIRIVA Respimat (tiotropium) 2.5 mcg/inh Inhaler INH SCH (07:53)
[2020-08-05] MEDS: Nicotine PATCH 14 MG/24 HR PATCH TRANSDERM SCH (08:39)
[2020-08-05] MEDS: Iron Sucrose 200 MG in NS 0.9% 100 ml BAG 100 ML IVPB SCH (09:17)
[2020-08-05] MEDS: Ondansetron 4 mg VIAL 2 MG/ML 2 ml VIAL IV PRN (10:00)
[2020-08-05] MEDS ORDERED: Furosemide 20 mg/2 ml IV VIAL IV SLOW PU SCH (11:00)
[2020-08-05] MEDS ORDERED: Pantoprazole VIAL 40 MG VIAL IV ONE (11:41)
[2020-08-05 11:42] LABS: BUN/Creatinine Ratio 21.1 (8-20); Calcium 8.7 mg/dL (8.6-10.3); EGFR African American 96.3 (>60); EGFR Non-African American 79.6 (>60); Potassium 3.1 mmol/L (3.5-5.0)
[2020-08-05] MEDS ORDERED: Potassium Chloride LIQUID 20 MEQ/15 ML LIQUID PO ONE (11:53)
[2020-08-05 12:14] LABS: Magnesium 1.9 mg/dL (1.9-2.7)
[2020-08-05] MEDS: KCL 10 MEQ/50 ML IVPREMIX 10 MEQ/50 ML BAG IV SCH ×2 (14:51→17:23)
[2020-08-05] MEDS: Enoxaparin 40 MG/0.4 ML SYR SUBCUT SCH (20:52)
[2020-08-05] MEDS: Venlafaxine XR 75 mg PO SCH (20:52)
[2020-08-06] MEDS: SPIRIVA Respimat (tiotropium) 2.5 mcg/inh Inhaler INH SCH (07:35)
[2020-08-06 07:57] VITALS: BP 102/66
[2020-08-06] MEDS: Cholestyramine Resin 4 GM POWDER PO SCH (08:48)
[2020-08-06] MEDS: Iron Sucrose 200 MG in NS 0.9% 100 ml BAG 100 ML IVPB SCH (08:48)
[2020-08-06] MEDS: Nicotine PATCH 14 MG/24 HR PATCH TRANSDERM SCH (08:55)
[2020-08-06 09:49] LABS: Calcium 8.7 mg/dL (8.6-10.3); EGFR African American 77.3 (>60); EGFR Non-African American 63.9 (>60); Magnesium 1.6 mg/dL (1.9-2.7); Potassium 3.5 mmol/L (3.5-5.0)
[2020-08-06 10:08] LABS: BUN/Creatinine Ratio 20.7 (8-20)
== END 2020-08-06 09:49 | disposition home health service (06) | DRG 221 ==
LOC: AA 09:31 → SSU 16:29 → ICU 07-28 16:02 → SSU 07-31 14:44
PROVIDERS: ADMIT Surgery; ATTEND Surgery

== ENCOUNTER 2020-09-04 14:53 | Inpatient (IN) ==
[2020-09-04 18:46] LABS: ABS Basophils 0.1 10^3/ul (0-0.2); ABS Eosinophils 0.1 10^3/ul (0-0.6); ABS Lymphocytes 2.2 10^3/ul (1.0-4.8); ABS Monocytes 0.6 10^3/ul (0-0.8); ABS Neutrophils 4.7 10^3/ul (1.5-7.7); Eosinophil % 1.3 %; Hematocrit 35 % (35-47); Hemoglobin 11.8 g/dL (12.0-16.0); Mean Corpuscular HGB Conc 34 g/dL (31-36); Mean Corpuscular Hemoglobin 34 pg (27-31); Mean Corpuscular Volume 100 fL (80-97); Mean Platelet Volume 6.6 fL (7.4-10.4); Nucleated Red Blood Cells % 0.1; Platelet Count 478 10^3/uL (150-450); Red Blood Count 3.47 10^6 /uL (3.70-4.87); Red Cell Distribution Width 14 % (10-15); White Blood Count 7.7 10^3/uL (3.5-10.8)
[2020-09-04 19:19] LABS: Albumin 4.2 g/dL (3.2-5.2); Albumin/Globulin Ratio 1.1 (1-3); Calcium 9.4 mg/dL (8.6-10.3); EGFR African American 19.1 (>60); EGFR Non-African American 15.8 (>60); Globulin 3.9 g/dL (2-4); Potassium 4.6 mmol/L (3.5-5.0); Total Bilirubin 0.4 mg/dL (0.2-1.0); Total Protein 8.1 g/dL (6.4-8.9)
[2020-09-04] MEDS ORDERED: NS 0.9% 1000 ml BAG 1,000 ML IV SCH (21:15)
[2020-09-04] MEDS ORDERED: Albuterol HFA INHALER 8 gm MDI INH PRN (22:14)
[2020-09-04 22:35] LABS: Ferritin 1038.4 ng/mL (11-307)
[2020-09-04 23:07] LABS: Erythrocyte Sed Rate 97 mm/Hr (0-29)
[2020-09-04] MEDS ORDERED: Magnesium Sulf 4 GM/100 ML IV 4,000 MG/100 ML BAG IVPB ONE (23:25)
[2020-09-04 23:27] LABS: TSH Ultra Thyroid Stim Horm 3.1 mcIU/mL (0.34-5.60)
[2020-09-05] MEDS: Heparin 5000 UNITS/ML 1 mL VIAL SUBCUT SCH ×4 (00:14→23:45)
[2020-09-05 05:25] LABS: Calcium 9.5 mg/dL (8.6-10.3); Potassium 4.1 mmol/L (3.5-5.0)
[2020-09-05 05:31] LABS: EGFR African American 21.8 (>60)
[2020-09-05] MEDS: SPIRIVA Respimat (tiotropium) 2.5 mcg/inh Inhaler INH SCH (07:31)
[2020-09-05] MEDS: Nicotine PATCH 14 MG/24 HR PATCH TRANSDERM SCH (08:13)
[2020-09-05 13:50] LABS: Magnesium 2.2 mg/dL (1.9-2.7)
[2020-09-05 14:29] LABS: Urine Appearance Cloudy; Urine Bilirubin Negative (Negative); Urine Blood 1+ (Negative); Urine Color Yellow; Urine Glucose Negative (Negative); Urine Ketones Negative (Negative); Urine Nitrite Negative (Negative); Urine Protein Negative (Negative); Urine Specific Gravity 1.014 (1.002-1.030); Urine Urobilinogen Negative (Negative)
[2020-09-05 14:35] LABS: Urine Bacteria Absent (Absent); Urine Red Blood Cell Trace(0-2/hpf) (Absent); Urine Squamous Epithelial Cell Present (Absent); Urine White Blood Cell 1+(6-10/hpf) (Absent)
[2020-09-05 14:50] LABS: Urine Creatinine Concentration 160.33 mg/dL; Urine Sodium Concentration < 18 mmol/L
[2020-09-05] MEDS: NS 0.9% 1000 ml BAG 1,000 ML IV SCH ×2 (17:38→23:48)
[2020-09-06 05:17] LABS: ABS Eosinophils 0.2 10^3/ul (0-0.6); ABS Monocytes 0.6 10^3/ul (0-0.8); ABS Neutrophils 3.4 10^3/ul (1.5-7.7); Eosinophil % 2.6 %; Hematocrit 29 % (35-47); Hemoglobin 10.1 g/dL (12.0-16.0); Lymphocyte % 31.5 %; Mean Corpuscular HGB Conc 35 g/dL (31-36); Mean Corpuscular Hemoglobin 35 pg (27-31); Mean Corpuscular Volume 99 fL (80-97); Mean Platelet Volume 6.4 fL (7.4-10.4); Nucleated Red Blood Cells % 0.1; Platelet Count 425 10^3/uL (150-450); Red Blood Count 2.92 10^6 /uL (3.70-4.87); Red Cell Distribution Width 14 % (10-15); White Blood Count 6.2 10^3/uL (3.5-10.8)
[2020-09-06 05:38] LABS: Calcium 8.4 mg/dL (8.6-10.3); EGFR Non-African American 37.2 (>60); Potassium 3.6 mmol/L (3.5-5.0)
[2020-09-06] MEDS: Heparin 5000 UNITS/ML 1 mL VIAL SUBCUT SCH ×3 (06:06→21:15)
[2020-09-06] MEDS: SPIRIVA Respimat (tiotropium) 2.5 mcg/inh Inhaler INH SCH (07:42)
[2020-09-06] MEDS: NS 0.9% 1000 ml BAG 1,000 ML IV SCH ×2 (08:55→17:28)
[2020-09-06] MEDS: Nicotine PATCH 14 MG/24 HR PATCH TRANSDERM SCH (08:58)
[2020-09-06] MEDS ORDERED: Potassium Chlor 20 meq TAB.ER PO ONE (14:22)
[2020-09-07] MEDS: NS 0.9% 1000 ml BAG 1,000 ML IV SCH ×2 (01:54→09:12)
[2020-09-07] MEDS ORDERED: NS 0.9% 1000 ml BAG 1,000 ML IV ONE (03:14)
[2020-09-07] MEDS: Heparin 5000 UNITS/ML 1 mL VIAL SUBCUT SCH ×3 (05:21→20:22)
[2020-09-07 06:05] LABS: ABS Eosinophils 0.1 10^3/ul (0-0.6); ABS Lymphocytes 2.1 10^3/ul (1.0-4.8); ABS Monocytes 0.6 10^3/ul (0-0.8); Eosinophil % 2.1 %; Hematocrit 25 % (35-47); Hemoglobin 8.7 g/dL (12.0-16.0); Lymphocyte % 30.8 %; Mean Corpuscular HGB Conc 35 g/dL (31-36); Mean Corpuscular Hemoglobin 35 pg (27-31); Mean Corpuscular Volume 100 fL (80-97); Mean Platelet Volume 6.3 fL (7.4-10.4); Platelet Count 376 10^3/uL (150-450); Red Blood Count 2.53 10^6 /uL (3.70-4.87); Red Cell Distribution Width 14 % (10-15); White Blood Count 6.8 10^3/uL (3.5-10.8)
[2020-09-07 06:20] LABS: Calcium 7.9 mg/dL (8.6-10.3); EGFR African American 85.8 (>60); EGFR Non-African American 70.9 (>60); Magnesium 1.4 mg/dL (1.9-2.7); Potassium 3.7 mmol/L (3.5-5.0)
[2020-09-07] MEDS: SPIRIVA Respimat (tiotropium) 2.5 mcg/inh Inhaler INH SCH (07:51)
[2020-09-07] MEDS: Nicotine PATCH 14 MG/24 HR PATCH TRANSDERM SCH (09:03)
[2020-09-07] MEDS ORDERED: Magnesium Sulfate IV 3 GM in NS 0.9% 100 ml BAG 100 ML IVPB ONE (14:30)
[2020-09-07] MEDS ORDERED: KCL 10 MEQ/50 ML IVPREMIX 10 MEQ/50 ML BAG IV ONE (14:37)
[2020-09-07] MEDS ORDERED: Sodium Bicarb 8.4% Vial 50 ML 150 MEQ in D5W 1000 ml BAG 850 ML IV SCH (16:00)
[2020-09-07] MEDS ORDERED: Potassium Chlor 20 meq TAB.ER PO ONE (18:03)
[2020-09-07] MEDS ORDERED: Venlafaxine XR 75 mg PO SCH (21:00)
[2020-09-08 00:26] LABS: Calcium 8.1 mg/dL (8.6-10.3); EGFR African American 105.9 (>60); EGFR Non-African American 87.5 (>60); Potassium 3.4 mmol/L (3.5-5.0)
[2020-09-08] MEDS ORDERED: Potassium Chlor 10 meq TAB PO ONE (00:43)
[2020-09-08 04:03] LABS: ABS Eosinophils 0.1 10^3/ul (0-0.6); ABS Lymphocytes 1.8 10^3/ul (1.0-4.8); ABS Monocytes 0.4 10^3/ul (0-0.8); ABS Neutrophils 3.4 10^3/ul (1.5-7.7); Eosinophil % 2.2 %; Hematocrit 27 % (35-47); Hemoglobin 8.8 g/dL (12.0-16.0); Lymphocyte % 31.3 %; Mean Corpuscular HGB Conc 32 g/dL (31-36); Mean Corpuscular Hemoglobin 34 pg (27-31); Mean Corpuscular Volume 107 fL (80-97); Mean Platelet Volume 5.9 fL (7.4-10.4); Nucleated Red Blood Cells % 0.1; Platelet Count 425 10^3/uL (150-450); Red Blood Count 2.57 10^6 /uL (3.70-4.87); Red Cell Distribution Width 15 % (10-15); White Blood Count 5.7 10^3/uL (3.5-10.8)
[2020-09-08 04:14] LABS: Calcium 8.1 mg/dL (8.6-10.3); Calcium 8.2 mg/dL (8.6-10.3); EGFR African American 107.7 (>60); Magnesium 1.8 mg/dL (1.9-2.7); Potassium 3.8 mmol/L (3.5-5.0)
[2020-09-08] MEDS: Heparin 5000 UNITS/ML 1 mL VIAL SUBCUT SCH (05:52)
[2020-09-08] MEDS: SPIRIVA Respimat (tiotropium) 2.5 mcg/inh Inhaler INH SCH (07:26)
[2020-09-08 07:42] VITALS: BP 109/66
[2020-09-08 07:44] LABS: Blood Urea Nitrogen 11 mg/dL (6-24); CO2 Carbon Dioxide 19 mmol/L (22-32); Calcium 8.6 mg/dL (8.6-10.3); Chloride 109 mmol/L (101-111); EGFR African American 97.8 (>60); EGFR Non-African American 80.8 (>60); Glucose 94 mg/dL (70-100); Sodium 135 mmol/L (135-145)
[2020-09-08] MEDS: Nicotine PATCH 14 MG/24 HR PATCH TRANSDERM SCH (07:55)
[2020-09-08 08:19] LABS: Anion Gap 7 mmol/L (2-11)
[2020-09-08] MEDS ORDERED: Venlafaxine XR 75 mg PO SCH ×2 (09:00)
[2020-09-08] MEDS ORDERED: Magnesium Sulfate IV 3 GM in NS 0.9% 100 ml BAG 100 ML IVPB ONE (09:00)
[2020-09-08] MEDS ORDERED: Sodium Bicarb 8.4% Vial 50 ML 150 MEQ in D5W 1000 ml BAG 850 ML IV SCH (09:00)
== END 2020-09-08 09:45 | disposition left against medical advice (07) | DRG 248 ==
LOC: ED 14:53 → MEDTELE 14:53
PROVIDERS: ADMIT Internal Medicine; ATTEND Internal Medicine

== ENCOUNTER 2020-09-19 05:56 | Inpatient (IN) ==
[2020-09-19] MEDS ORDERED: Buffered Lidocaine 1% SYRIN 1 ml INTRADERM ONE (06:00)
[2020-09-19] MEDS ORDERED: Lactated Ringers 1000 ml BAG 1,000 ML IV SCH (06:00)
[2020-09-19] MEDS ORDERED: Heparin 5000 UNITS/ML 1 mL VIAL ONE (06:23)
[2020-09-19] MEDS ORDERED: Clindamycin 900 MG/D5W BAG 900 MG/50 ML BAG IVPB ONE (06:23)
[2020-09-19] MEDS ORDERED: Midazolam 2 mg/2 ml VIAL 1 mg/ml 2 ml VIAL (2 mg) ONE ×2 (06:57→08:55)
[2020-09-19] MEDS ORDERED: Rocuronium 50 mg VIAL 10 mg/ml 5 ml VIAL (50 mg) ONE ×3 (06:57→08:55)
[2020-09-19] MEDS ORDERED: fentaNYL 250 mcg/5 ml 50 MCG/ML 5 ml VIAL (250 MCG) ONE (06:57)
[2020-09-19] MEDS ORDERED: Lidocaine 2% PF 5 ML VIAL ONE (06:58)
[2020-09-19] MEDS ORDERED: Propofol 10 MG/ML 20 ML BTL ONE ×2 (06:58→08:55)
[2020-09-19] MEDS ORDERED: HYDROmorphone 1 MG/1 ML SYRINGE ONE (07:07)
[2020-09-19] MEDS ORDERED: Bupivacaine 0.25% EPI 200,000 30 ML SDV ONE (07:16)
[2020-09-19 07:25] LABS: Calcium 8.5 mg/dL (8.6-10.3); EGFR African American 27.4 (>60); EGFR Non-African American 22.6 (>60); Potassium 3.1 mmol/L (3.5-5.0)
[2020-09-19] MEDS ORDERED: diPHENhydraMINE IV 50 MG/ML 1 ml VIAL (BENADRYL) IV PRN (08:10)
[2020-09-19] MEDS ORDERED: Naloxone 0.4 mg VIAL 0.4 mg/ml 1 ml VIAL IV PRN (08:10)
[2020-09-19] MEDS ORDERED: HYDROmorphone 1 MG/1 ML SYRINGE IV PRN (08:10)
[2020-09-19] MEDS ORDERED: DiMENhydriNATE IV 50 mg/ml 1 ml VIAL IV PUSH PRN (08:10)
[2020-09-19] MEDS ORDERED: Acetaminophen IV 1 GM/100ML 100 ML ONE (08:20)
[2020-09-19] MEDS ORDERED: Ondansetron 4 mg VIAL 2 MG/ML 2 ml VIAL ONE (09:04)
[2020-09-19] MEDS ORDERED: Dexamethasone IV 4 MG/ML VIAL 1 ml VIAL ONE (09:04)
[2020-09-19] MEDS ORDERED: Albuterol/Ipratropium NEB.SOL (2.5/0.5 MG) 3 ML NEB.SOLN INH PRN (09:27)
[2020-09-19] MEDS ORDERED: Albuterol HFA INHALER 8 gm MDI INH PRN (10:26)
[2020-09-19] MEDS: Lactated Ringers 1000 ml BAG 1,000 ML IV SCH ×2 (10:51→17:52)
[2020-09-19] MEDS: KCL 10 MEQ/50 ML IVPREMIX 10 MEQ/50 ML BAG IV SCH ×4 (11:00→15:51)
[2020-09-19] MEDS ORDERED: HYDROmorphone 0.5 MG/0.5 ML SYRINGE IV SLOW PU PRN (11:22)
[2020-09-19] MEDS: Venlafaxine XR 75 mg PO SCH (17:55)
[2020-09-19] MEDS: Heparin 5000 UNITS/ML 1 mL VIAL SUBCUT SCH (20:20)
[2020-09-20] MEDS: Lactated Ringers 1000 ml BAG 1,000 ML IV SCH ×5 (00:35→19:23)
[2020-09-20 05:54] LABS: ABS Lymphocytes 2.6 10^3/ul (1.0-4.8); ABS Monocytes 0.6 10^3/ul (0-0.8); ABS Neutrophils 4.4 10^3/ul (1.5-7.7); Eosinophil % 0.5 %; Hematocrit 26 % (35-47); Hemoglobin 9.1 g/dL (12.0-16.0); Lymphocyte % 33.5 %; Mean Corpuscular HGB Conc 35 g/dL (31-36); Mean Corpuscular Hemoglobin 35 pg (27-31); Mean Corpuscular Volume 100 fL (80-97); Mean Platelet Volume 6.2 fL (7.4-10.4); Nucleated Red Blood Cells % 0.1; Platelet Count 419 10^3/uL (150-450); Red Blood Count 2.57 10^6 /uL (3.70-4.87); Red Cell Distribution Width 15 % (10-15); White Blood Count 7.6 10^3/uL (3.5-10.8)
[2020-09-20] MEDS: SPIRIVA Respimat (tiotropium) 2.5 mcg/inh Inhaler INH SCH (07:07)
[2020-09-20 08:32] LABS: Calcium 7.5 mg/dL (8.6-10.3); EGFR African American 46.4 (>60); EGFR Non-African American 38.4 (>60); Potassium 3.4 mmol/L (3.5-5.0)
[2020-09-20 08:38] LABS: Magnesium 0.7 mg/dL (1.9-2.7)
[2020-09-20] MEDS: Heparin 5000 UNITS/ML 1 mL VIAL SUBCUT SCH ×2 (09:21→21:06)
[2020-09-20] MEDS ORDERED: Magnesium Sulf 4 GM/100 ML IV 4,000 MG/100 ML BAG IVPB ONE (09:30)
[2020-09-20 09:58] LABS: Phosphorus 2.7 mg/dL (2.5-5.0)
[2020-09-20] MEDS: KCL 10 MEQ/50 ML IVPREMIX 10 MEQ/50 ML BAG IV SCH ×4 (12:44→16:17)
[2020-09-20] MEDS ORDERED: COVID-19 VACCINE, AD26(JANSSEN)/PF 0.5 ML IM ONE (14:00)
[2020-09-20 16:24] LABS: Calcium 8.3 mg/dL (8.6-10.3); EGFR African American 58.5 (>60); EGFR Non-African American 48.4 (>60); Magnesium 2.3 mg/dL (1.9-2.7); Potassium 3.8 mmol/L (3.5-5.0)
[2020-09-20] MEDS: Ondansetron 4 mg VIAL 2 MG/ML 2 ml VIAL IV PRN ×2 (16:42→23:14)
[2020-09-20] MEDS: Venlafaxine XR 75 mg PO SCH (18:13)
[2020-09-21] MEDS: Lactated Ringers 1000 ml BAG 1,000 ML IV SCH ×2 (02:59→10:56)
[2020-09-21] MEDS: Ondansetron 4 mg VIAL 2 MG/ML 2 ml VIAL IV PRN ×4 (05:45→22:36)
[2020-09-21] MEDS: SPIRIVA Respimat (tiotropium) 2.5 mcg/inh Inhaler INH SCH (07:07)
[2020-09-21] MEDS: Heparin 5000 UNITS/ML 1 mL VIAL SUBCUT SCH ×2 (08:43→20:47)
[2020-09-21] MEDS ORDERED: Trimethobenzamide *IM* 100 mg/ml 2 ml VIAL (200 mg) IM PRN (09:23)
[2020-09-21 10:09] LABS: Hematocrit 30 % (35-47); Hemoglobin 10.4 g/dL (12.0-16.0); Mean Corpuscular HGB Conc 34 g/dL (31-36); Mean Corpuscular Hemoglobin 34 pg (27-31); Mean Corpuscular Volume 100 fL (80-97); Mean Platelet Volume 6.1 fL (7.4-10.4); Platelet Count 466 10^3/uL (150-450); Red Blood Count 3.02 10^6 /uL (3.70-4.87); Red Cell Distribution Width 15 % (10-15); White Blood Count 5.7 10^3/uL (3.5-10.8)
[2020-09-21 10:12] LABS: ABS Lymphocytes 0.6 10^3/ul (1.0-4.8); ABS Monocytes 0.3 10^3/ul (0-0.8); ABS Neutrophils 4.8 10^3/ul (1.5-7.7); Eosinophil % 0.1 %; Lymphocyte % 10.2 %
[2020-09-21 10:25] LABS: Calcium 8.6 mg/dL (8.6-10.3); Magnesium 1.6 mg/dL (1.9-2.7); Potassium 4.1 mmol/L (3.5-5.0)
[2020-09-21 10:31] LABS: EGFR African American 69.4 (>60); EGFR Non-African American 57.3 (>60); Phosphorus 2.7 mg/dL (2.5-5.0)
[2020-09-21] MEDS ORDERED: Magnesium Sulfate 2 gm BAG 2 GM/50 ML BAG IVPB ONE (11:55)
[2020-09-21] MEDS: Venlafaxine XR 75 mg PO SCH (19:39)
[2020-09-22] MEDS: Lactated Ringers 1000 ml BAG 1,000 ML IV SCH ×2 (00:11→14:23)
[2020-09-22] MEDS: SPIRIVA Respimat (tiotropium) 2.5 mcg/inh Inhaler INH SCH (07:01)
[2020-09-22] MEDS: Heparin 5000 UNITS/ML 1 mL VIAL SUBCUT SCH ×2 (09:15→20:27)
[2020-09-22 09:24] LABS: ABS Lymphocytes 1.4 10^3/ul (1.0-4.8); ABS Monocytes 0.5 10^3/ul (0-0.8); Eosinophil % 0.5 %; Hematocrit 26 % (35-47); Hemoglobin 8.9 g/dL (12.0-16.0); Lymphocyte % 24.2 %; Mean Corpuscular HGB Conc 35 g/dL (31-36); Mean Corpuscular Hemoglobin 35 pg (27-31); Mean Corpuscular Volume 101 fL (80-97); Mean Platelet Volume 6.2 fL (7.4-10.4); Platelet Count 391 10^3/uL (150-450); Red Blood Count 2.55 10^6 /uL (3.70-4.87); Red Cell Distribution Width 15 % (10-15); White Blood Count 5.9 10^3/uL (3.5-10.8)
[2020-09-22 09:40] LABS: Calcium 8.9 mg/dL (8.6-10.3); EGFR African American 72.7 (>60); EGFR Non-African American 60.1 (>60); Magnesium 1.8 mg/dL (1.9-2.7); Potassium 4.1 mmol/L (3.5-5.0)
[2020-09-22] MEDS: Venlafaxine XR 75 mg PO SCH (20:27)
[2020-09-23] MEDS: Lactated Ringers 1000 ml BAG 1,000 ML IV SCH (03:43)
[2020-09-23 04:55] LABS: Hematocrit 24 % (35-47); Hemoglobin 8.1 g/dL (12.0-16.0); Mean Corpuscular HGB Conc 34 g/dL (31-36); Mean Corpuscular Hemoglobin 35 pg (27-31); Mean Corpuscular Volume 101 fL (80-97); Mean Platelet Volume 6.3 fL (7.4-10.4); Platelet Count 364 10^3/uL (150-450); Red Blood Count 2.34 10^6 /uL (3.70-4.87); Red Cell Distribution Width 15 % (10-15); White Blood Count 5.4 10^3/uL (3.5-10.8)
[2020-09-23 05:17] LABS: Calcium 8.3 mg/dL (8.6-10.3); EGFR African American 81.3 (>60); EGFR Non-African American 67.2 (>60); Magnesium 1.4 mg/dL (1.9-2.7); Phosphorus 2.6 mg/dL (2.5-5.0); Potassium 3.6 mmol/L (3.5-5.0)
[2020-09-23 08:12] VITALS: BP 98/54
[2020-09-23] MEDS: Heparin 5000 UNITS/ML 1 mL VIAL SUBCUT SCH (09:09)
== END 2020-09-23 10:13 | disposition home or self-care (01) | DRG 223 ==
LOC: AA 05:56 → SSU 09:22
PROVIDERS: ADMIT Surgery; ATTEND Surgery

== ENCOUNTER 2022-01-06 21:03 | Inpatient (IN) ==
[2022-01-06] MEDS ORDERED: Lactated Ringers 1000 ml BAG 1,000 ML IV ONE (21:12)
[2022-01-06] MEDS ORDERED: Ondansetron 4 mg VIAL 2 MG/ML 2 ml VIAL IV ONE (21:13)
[2022-01-06] MEDS ORDERED: Morphine 4 MG/ML VIAL (1 ml) IV ONE (21:34)
[2022-01-06] MEDS ORDERED: Albuterol/Ipratropium NEB.SOL (2.5/0.5 MG) 3 ML NEB.SOLN INH PRN (22:29)
[2022-01-06] MEDS ORDERED: Albuterol HFA INHALER 8 gm MDI INH PRN (22:29)
[2022-01-07] MEDS ORDERED: Acetaminophen IV 1 GM/100ML 1,000 MG/100 ML BAG IV ONE (00:19)
[2022-01-07] MEDS ORDERED: Prochlorperazine 5 mg/ml 2 ml VIAL (10 mg) IV ONE (00:20)
[2022-01-07] MEDS ORDERED: Albuterol 2.5mg/3 ml (0.083%) NEB.SOLN INH PRN (00:51)
[2022-01-07] MEDS ORDERED: Ondansetron 4 mg VIAL 2 MG/ML 2 ml VIAL IV PRN (02:00)
[2022-01-07] MEDS: Ondansetron 4 mg VIAL 2 MG/ML 2 ml VIAL IV PRN ×2 (03:11→08:09)
[2022-01-07 06:05] LABS: Hematocrit 38 % (35-47); Hemoglobin 13.8 g/dL (12.0-16.0); Mean Corpuscular HGB Conc 36 g/dL (31-36); Mean Corpuscular Hemoglobin 37 pg (27-31); Mean Corpuscular Volume 103 fL (80-97); Mean Platelet Volume 6.5 fL (7.4-10.4); Platelet Count 384 10^3/uL (150-450); Red Blood Count 3.72 10^6 /uL (3.70-4.87); Red Cell Distribution Width 13 % (10-15); White Blood Count 8.7 10^3/uL (3.5-10.8)
[2022-01-07 06:20] LABS: ABS Lymphocytes 0.8 10^3/ul (1.0-4.8); ABS Monocytes 0.6 10^3/ul (0-0.8); ABS Neutrophils 7.3 10^3/ul (1.5-7.7); Eosinophil % 0.3 %; Lymphocyte % 9.2 %; Nucleated Red Blood Cells % 0.1
[2022-01-07 06:40] LABS: ALT 31 U/L (7-52); Albumin/Globulin Ratio 1.5 (1-3); Alkaline Phosphatase 135 U/L (35-149); Blood Urea Nitrogen 13 mg/dL (6-24); CO2 Carbon Dioxide 20 mmol/L (22-32); Calcium 8.9 mg/dL (8.6-10.3); Chloride 104 mmol/L (101-111); Globulin 2.6 g/dL (2-4); Glucose 148 mg/dL (70-100); Sodium 138 mmol/L (135-145); Total Protein 6.6 g/dL (6.4-8.9); eGFR CKD-EPI 64.2 (>60)
[2022-01-07 06:41] LABS: Anion Gap 14 mmol/L (2-11)
[2022-01-07] MEDS ORDERED: Magnesium Sulf 4 GM/100 ML IV 4,000 MG/100 ML BAG IVPB ONE (07:44)
[2022-01-07] MEDS: SPIRIVA Respimat (tiotropium) 2.5 mcg/inh Inhaler INH SCH (08:01)
[2022-01-07] MEDS: Enoxaparin 40 MG/0.4 ML SYR SUBCUT SCH (08:09)
[2022-01-07] MEDS: Lactated Ringers 1000 ml BAG 1,000 ML IV SCH ×2 (08:14→18:10)
[2022-01-07 09:37] LABS: Potassium Redraw 3.6 mmol/L (3.5-5.0)
[2022-01-07] MEDS ORDERED: Bupivacaine 0.25% EPI 200,000 30 ML SDV ONE (10:08)
[2022-01-07] MEDS: Phenol 1.4% Throat Spray 177 ml BTL MT PRN ×2 (15:25→23:35)
[2022-01-07] MEDS ORDERED: Diatrizoate Meg/Sod(CONTRAST) 30 ML ORAL.SOLN PO ONE ×3 (18:01→22:23)
[2022-01-08 05:30] LABS: ABS Lymphocytes 0.9 10^3/ul (1.0-4.8); ABS Monocytes 0.4 10^3/ul (0-0.8); ABS Neutrophils 2.7 10^3/ul (1.5-7.7); Hematocrit 35 % (35-47); Hemoglobin 11.5 g/dL (12.0-16.0); Lymphocyte % 23.1 %; Mean Corpuscular HGB Conc 33 g/dL (31-36); Mean Corpuscular Hemoglobin 34 pg (27-31); Mean Corpuscular Volume 102 fL (80-97); Mean Platelet Volume 6.9 fL (7.4-10.4); Platelet Count 324 10^3/uL (150-450); Red Blood Count 3.38 10^6 /uL (3.70-4.87); Red Cell Distribution Width 13 % (10-15); White Blood Count 4.1 10^3/uL (3.5-10.8)
[2022-01-08 06:00] LABS: Calcium 8.6 mg/dL (8.6-10.3); Magnesium 2.2 mg/dL (1.9-2.7); Potassium 3.7 mmol/L (3.5-5.0); eGFR CKD-EPI 58.7 (>60)
[2022-01-08] MEDS: Ondansetron 4 mg VIAL 2 MG/ML 2 ml VIAL IV PRN (07:07)
[2022-01-08] MEDS: Enoxaparin 40 MG/0.4 ML SYR SUBCUT SCH (08:09)
[2022-01-08] MEDS: SPIRIVA Respimat (tiotropium) 2.5 mcg/inh Inhaler INH SCH (08:56)
[2022-01-08] MEDS: Lactated Ringers 1000 ml BAG 1,000 ML IV SCH ×2 (11:48→22:10)
[2022-01-08] MEDS ORDERED: Venlafaxine XR 75 mg PO SCH ×4 (12:00)
[2022-01-08] MEDS: Nicotine PATCH 21 MG/24 HR PATCH TRANSDERM SCH (12:03)
[2022-01-08] MEDS: Acetaminophen IV 1 GM/100ML 1,000 MG/100 ML BAG IV PRN (14:59)
[2022-01-08] MEDS: Phenol 1.4% Throat Spray 177 ml BTL MT PRN (22:13)
[2022-01-08] MEDS ORDERED: Polyethylene Glycol 3350 17 GM PACKET PO PRN (22:47)
[2022-01-09] MEDS: Ondansetron 4 mg VIAL 2 MG/ML 2 ml VIAL IV PRN ×2 (00:04→06:32)
[2022-01-09 05:50] LABS: Hematocrit 31 % (35-47); Hemoglobin 10.4 g/dL (12.0-16.0); Mean Corpuscular HGB Conc 34 g/dL (31-36); Mean Corpuscular Hemoglobin 34 pg (27-31); Mean Corpuscular Volume 101 fL (80-97); Mean Platelet Volume 6.7 fL (7.4-10.4); Platelet Count 293 10^3/uL (150-450); Red Blood Count 3.06 10^6 /uL (3.70-4.87); Red Cell Distribution Width 13 % (10-15); White Blood Count 3.1 10^3/uL (3.5-10.8)
[2022-01-09 06:18] LABS: Calcium 8.7 mg/dL (8.6-10.3); Potassium 3.3 mmol/L (3.5-5.0)
[2022-01-09 08:04] LABS: Magnesium 2.1 mg/dL (1.9-2.7)
[2022-01-09] MEDS: Acetaminophen IV 1 GM/100ML 1,000 MG/100 ML BAG IV PRN (09:58)
[2022-01-09] MEDS: KCL 20 MEQ/100 ML IVPREMIX 20 MEQ/100 ML BAG IV SCH ×2 (10:49→13:29)
[2022-01-09] MEDS: Nicotine PATCH 21 MG/24 HR PATCH TRANSDERM SCH (12:25)
[2022-01-09] MEDS ORDERED: Potassium Chloride IV 40 MEQ in Lactated Ringers 1000 ml BAG 1,000 ML IVPB ONE (12:30)
[2022-01-09] MEDS: Enoxaparin 40 MG/0.4 ML SYR SUBCUT SCH (12:59)
[2022-01-09] MEDS: SPIRIVA Respimat (tiotropium) 2.5 mcg/inh Inhaler INH SCH (13:00)
[2022-01-09] MEDS ORDERED: Potassium Chloride LIQUID 20 MEQ/15 ML LIQUID PO ONE (14:08)
[2022-01-09] MEDS ORDERED: Potassium Chlor 20 meq TAB.ER PO ONE (14:57)
[2022-01-09] MEDS: Lactated Ringers 1000 ml BAG 1,000 ML IV SCH (15:35)
[2022-01-09] MEDS ORDERED: Lidocaine 2% PF 5 ML VIAL ONE ×2 (17:49→19:15)
[2022-01-09] MEDS ORDERED: Rocuronium 50 mg VIAL 10 mg/ml 5 ml VIAL (50 mg) ONE (17:49)
[2022-01-09] MEDS ORDERED: fentaNYL 250 mcg/5 ml 50 MCG/ML 5 ml VIAL (250 MCG) ONE (17:49)
[2022-01-09] MEDS ORDERED: Propofol 10 MG/ML 20 ML BTL ONE (17:49)
[2022-01-09] MEDS ORDERED: Bupivacaine 0.25% EPI 200,000 30 ML SDV ONE (18:28)
[2022-01-09] MEDS ORDERED: Succinylcholine 200 mg VIAL 20 mg/ml 10 ml VIAL (200 mg) ONE (18:31)
[2022-01-09] MEDS ORDERED: Gentamicin ADULT 350 MG in NS 0.9% 100 ml BAG 100 ML IVPB ONE (19:00)
[2022-01-09] MEDS ORDERED: metroNIDAZOLE IV 500 MG/100ML 100 ML IVPB ONE (19:00)
[2022-01-09] MEDS ORDERED: Dexamethasone IV 4 MG/ML VIAL 1 ml VIAL ONE (19:16)
[2022-01-09] MEDS ORDERED: Ondansetron 4 mg VIAL 2 MG/ML 2 ml VIAL ONE (19:40)
[2022-01-09] MEDS ORDERED: Dexmedetomidine 200 mcg/2 ml 2 ml VIAL (200 mcg) ONE (19:41)
[2022-01-09] MEDS ORDERED: Acetaminophen IV 1 GM/100ML 1,000 MG/100 ML BAG IV ONE (19:41)
[2022-01-09] MEDS ORDERED: Morphine 10 MG/ML VIAL (1 ml) ONE (19:59)
[2022-01-09] MEDS ORDERED: Morphine 4 MG/ML VIAL (1 ml) IV PRN (22:05)
[2022-01-09] MEDS ORDERED: Ondansetron 4 mg VIAL 2 MG/ML 2 ml VIAL IV PRN (22:05)
[2022-01-09] MEDS ORDERED: Naloxone 0.4 mg VIAL 0.4 mg/ml 1 ml VIAL IV PRN (22:05)
[2022-01-10] MEDS: Lactated Ringers 1000 ml BAG 1,000 ML IV SCH (00:13)
[2022-01-10] MEDS: Acetaminophen IV 1 GM/100ML 1,000 MG/100 ML BAG IV PRN (03:52)
[2022-01-10 06:19] LABS: ABS Lymphocytes 0.7 10^3/ul (1.0-4.8); ABS Monocytes 0.3 10^3/ul (0-0.8); Eosinophil % 0.2 %; Hematocrit 31 % (35-47); Hemoglobin 10.5 g/dL (12.0-16.0); Lymphocyte % 14.2 %; Mean Corpuscular HGB Conc 34 g/dL (31-36); Mean Corpuscular Hemoglobin 34 pg (27-31); Mean Corpuscular Volume 103 fL (80-97); Mean Platelet Volume 6.9 fL (7.4-10.4); Nucleated Red Blood Cells % 0.1; Platelet Count 358 10^3/uL (150-450); Red Blood Count 3.04 10^6 /uL (3.70-4.87); Red Cell Distribution Width 12 % (10-15); White Blood Count 5.1 10^3/uL (3.5-10.8)
[2022-01-10 06:20] LABS: Magnesium 1.8 mg/dL (1.9-2.7); Potassium 3.7 mmol/L (3.5-5.0); eGFR CKD-EPI 51.9 (>60)
[2022-01-10] MEDS ORDERED: Magnesium Sulfate 2 gm BAG 2 GM/50 ML BAG IVPB ONE (07:38)
[2022-01-10] MEDS ORDERED: Lactated Ringers 1000 ml BAG 1,000 ML IV SCH (08:00)
[2022-01-10 10:44] LABS: Phosphorus 4.6 mg/dL (2.5-5.0)
[2022-01-10] MEDS ORDERED: NS 0.9% 1000 ml BAG 1,000 ML IV ONE (11:11)
[2022-01-10] MEDS: Nicotine PATCH 21 MG/24 HR PATCH TRANSDERM SCH (11:45)
[2022-01-10] MEDS: Venlafaxine XR 75 mg PO SCH (12:30)
[2022-01-10] MEDS: SPIRIVA Respimat (tiotropium) 2.5 mcg/inh Inhaler INH SCH (12:33)
[2022-01-10] MEDS: Heparin 5000 UNITS/ML 1 mL VIAL SUBCUT SCH ×2 (13:41→23:11)
[2022-01-11] MEDS: Calcium Carb (TUMS) 500 mg CHEW TAB PO PRN ×2 (02:52→17:39)
[2022-01-11] MEDS ORDERED: Pantoprazole VIAL 40 MG VIAL IV SCH (03:00)
[2022-01-11] MEDS: Heparin 5000 UNITS/ML 1 mL VIAL SUBCUT SCH ×3 (05:50→21:58)
[2022-01-11 06:09] LABS: ABS Eosinophils 0.1 10^3/ul (0-0.6); ABS Lymphocytes 1.6 10^3/ul (1.0-4.8); ABS Monocytes 0.6 10^3/ul (0-0.8); ABS Neutrophils 2.6 10^3/ul (1.5-7.7); Eosinophil % 2.6 %; Hematocrit 31 % (35-47); Hemoglobin 10.5 g/dL (12.0-16.0); Lymphocyte % 31.7 %; Mean Corpuscular HGB Conc 34 g/dL (31-36); Mean Corpuscular Hemoglobin 35 pg (27-31); Mean Corpuscular Volume 103 fL (80-97); Mean Platelet Volume 6.7 fL (7.4-10.4); Nucleated Red Blood Cells % 0.1; Platelet Count 350 10^3/uL (150-450); Red Blood Count 3.03 10^6 /uL (3.70-4.87); Red Cell Distribution Width 13 % (10-15); White Blood Count 4.9 10^3/uL (3.5-10.8)
[2022-01-11 06:24] LABS: Calcium 7.8 mg/dL (8.6-10.3); Magnesium 2.2 mg/dL (1.9-2.7); Potassium 3.3 mmol/L (3.5-5.0); eGFR CKD-EPI 64.2 (>60)
[2022-01-11] MEDS ORDERED: NS 0.9% w/ 40 Meq KCL 1000 ML 1,000 ML IV SCH (08:00)
[2022-01-11] MEDS ORDERED: Morphine 2 MG/ML SYRINGE IV PRN (08:12)
[2022-01-11] MEDS: Nicotine PATCH 21 MG/24 HR PATCH TRANSDERM SCH (09:56)
[2022-01-11] MEDS: Venlafaxine XR 75 mg PO SCH (09:56)
[2022-01-11] MEDS: SPIRIVA Respimat (tiotropium) 2.5 mcg/inh Inhaler INH SCH (09:57)
[2022-01-11] MEDS ORDERED: Potassium Chlor 20 meq TAB.ER PO ONE (10:12)
[2022-01-11] MEDS ORDERED: Lactated Ringers 1000 ml BAG 1,000 ML IV ONE (14:13)
[2022-01-11] MEDS ORDERED: Ondansetron 4 mg VIAL 2 MG/ML 2 ml VIAL IV PRN (15:26)
[2022-01-11] MEDS: Morphine 2 MG/ML SYRINGE IV PRN ×2 (15:49→23:38)
[2022-01-11] MEDS ORDERED: Diatrizoate Meg/Sod(CONTRAST) 30 ML ORAL.SOLN PO ONE ×2 (19:44→21:44)
[2022-01-11] MEDS: HYDROmorphone 0.5 MG/0.5 ML SYRINGE IV SLOW PU PRN (20:08)
[2022-01-11] MEDS: Ondansetron 4 mg VIAL 2 MG/ML 2 ml VIAL IV PRN (20:25)
[2022-01-12] MEDS: Ondansetron 4 mg VIAL 2 MG/ML 2 ml VIAL IV PRN ×2 (00:44→04:50)
[2022-01-12] MEDS: HYDROmorphone 0.5 MG/0.5 ML SYRINGE IV SLOW PU PRN ×2 (01:19→05:58)
[2022-01-12 05:35] LABS: ABS Lymphocytes 1.2 10^3/ul (1.0-4.8); ABS Monocytes 0.6 10^3/ul (0-0.8); ABS Neutrophils 2.6 10^3/ul (1.5-7.7); Eosinophil % 0.9 %; Hematocrit 35 % (35-47); Hemoglobin 11.5 g/dL (12.0-16.0); Mean Corpuscular HGB Conc 33 g/dL (31-36); Mean Corpuscular Hemoglobin 33 pg (27-31); Mean Corpuscular Volume 101 fL (80-97); Mean Platelet Volume 6.6 fL (7.4-10.4); Nucleated Red Blood Cells % 0.2; Platelet Count 383 10^3/uL (150-450); Red Blood Count 3.47 10^6 /uL (3.70-4.87); Red Cell Distribution Width 12 % (10-15); White Blood Count 4.4 10^3/uL (3.5-10.8)
[2022-01-12 05:57] LABS: Calcium 8.6 mg/dL (8.6-10.3); Magnesium 1.7 mg/dL (1.9-2.7); eGFR CKD-EPI 67.3 (>60)
[2022-01-12] MEDS: Heparin 5000 UNITS/ML 1 mL VIAL SUBCUT SCH ×3 (06:02→22:17)
[2022-01-12] MEDS ORDERED: Potassium Chloride LIQUID 20 MEQ/15 ML LIQUID PO ONE (07:35)
[2022-01-12] MEDS: Nicotine PATCH 21 MG/24 HR PATCH TRANSDERM SCH (08:06)
[2022-01-12] MEDS: KCL 20 MEQ/100 ML IVPREMIX 20 MEQ/100 ML BAG IV SCH ×3 (08:06→09:41)
[2022-01-12] MEDS: Venlafaxine XR 75 mg PO SCH (08:07)
[2022-01-12] MEDS: SPIRIVA Respimat (tiotropium) 2.5 mcg/inh Inhaler INH SCH (08:08)
[2022-01-12] MEDS: Lactated Ringers 1000 ml BAG 1,000 ML IV SCH ×2 (12:16→18:46)
[2022-01-12] MEDS: Morphine 2 MG/ML SYRINGE IV PRN (17:12)
[2022-01-13] MEDS: Heparin 5000 UNITS/ML 1 mL VIAL SUBCUT SCH ×3 (05:46→21:38)
[2022-01-13] MEDS: SPIRIVA Respimat (tiotropium) 2.5 mcg/inh Inhaler INH SCH (07:20)
[2022-01-13 07:45] LABS: ABS Eosinophils 0.1 10^3/ul (0-0.6); ABS Lymphocytes 2.2 10^3/ul (1.0-4.8); ABS Monocytes 0.9 10^3/ul (0-0.8); Eosinophil % 1.3 %; Hematocrit 33 % (35-47); Hemoglobin 11.2 g/dL (12.0-16.0); Lymphocyte % 29.8 %; Mean Corpuscular HGB Conc 34 g/dL (31-36); Mean Corpuscular Hemoglobin 34 pg (27-31); Mean Corpuscular Volume 102 fL (80-97); Mean Platelet Volume 6.2 fL (7.4-10.4); Nucleated Red Blood Cells % 0.1; Platelet Count 393 10^3/uL (150-450); Red Blood Count 3.29 10^6 /uL (3.70-4.87); Red Cell Distribution Width 13 % (10-15); White Blood Count 7.3 10^3/uL (3.5-10.8)
[2022-01-13 08:25] LABS: Calcium 8.5 mg/dL (8.6-10.3); Magnesium 1.7 mg/dL (1.9-2.7); Potassium 3.5 mmol/L (3.5-5.0); eGFR CKD-EPI 65.7 (>60)
[2022-01-13] MEDS: Venlafaxine XR 75 mg PO SCH (10:00)
[2022-01-13] MEDS: Nicotine PATCH 21 MG/24 HR PATCH TRANSDERM SCH (10:00)
[2022-01-13] MEDS ORDERED: Magnesium Sulfate IV 3 GM in NS 0.9% 100 ml BAG 100 ML IVPB ONE (13:55)
[2022-01-14 05:25] LABS: ABS Eosinophils 0.1 10^3/ul (0-0.6); ABS Lymphocytes 2.2 10^3/ul (1.0-4.8); Eosinophil % 0.9 %; Hematocrit 34 % (35-47); Hemoglobin 11.5 g/dL (12.0-16.0); Mean Corpuscular HGB Conc 34 g/dL (31-36); Mean Corpuscular Hemoglobin 35 pg (27-31); Mean Corpuscular Volume 101 fL (80-97); Mean Platelet Volume 7.1 fL (7.4-10.4); Nucleated Red Blood Cells % 0.1; Platelet Count 441 10^3/uL (150-450); Red Blood Count 3.33 10^6 /uL (3.70-4.87); Red Cell Distribution Width 13 % (10-15); White Blood Count 8.3 10^3/uL (3.5-10.8)
[2022-01-14 05:46] LABS: Calcium 8.8 mg/dL (8.6-10.3); Magnesium 2.2 mg/dL (1.9-2.7); Potassium 3.2 mmol/L (3.5-5.0); eGFR CKD-EPI 66.5 (>60)
[2022-01-14] MEDS: Heparin 5000 UNITS/ML 1 mL VIAL SUBCUT SCH ×3 (06:16→22:49)
[2022-01-14] MEDS ORDERED: Potassium Chloride LIQUID 20 MEQ/15 ML LIQUID PO ONE (08:00)
[2022-01-14] MEDS: SPIRIVA Respimat (tiotropium) 2.5 mcg/inh Inhaler INH SCH (09:18)
[2022-01-14] MEDS: Nicotine PATCH 21 MG/24 HR PATCH TRANSDERM SCH (09:46)
[2022-01-14] MEDS: Venlafaxine XR 75 mg PO SCH (09:49)
[2022-01-15] MEDS: Heparin 5000 UNITS/ML 1 mL VIAL SUBCUT SCH (05:44)
[2022-01-15 06:12] LABS: ABS Eosinophils 0.1 10^3/ul (0-0.6); ABS Lymphocytes 2.1 10^3/ul (1.0-4.8); ABS Neutrophils 4.4 10^3/ul (1.5-7.7); Hematocrit 33 % (35-47); Hemoglobin 11.4 g/dL (12.0-16.0); Lymphocyte % 27.9 %; Mean Corpuscular HGB Conc 35 g/dL (31-36); Mean Corpuscular Hemoglobin 35 pg (27-31); Mean Corpuscular Volume 101 fL (80-97); Mean Platelet Volume 7.5 fL (7.4-10.4); Nucleated Red Blood Cells % 0.1; Platelet Count 446 10^3/uL (150-450); Red Blood Count 3.25 10^6 /uL (3.70-4.87); Red Cell Distribution Width 13 % (10-15); White Blood Count 7.6 10^3/uL (3.5-10.8)
[2022-01-15 06:35] LABS: Albumin 3.4 g/dL (3.2-5.2); Albumin/Globulin Ratio 1.2 (1-3); Calcium 8.4 mg/dL (8.6-10.3); Globulin 2.8 g/dL (2-4); Magnesium 1.7 mg/dL (1.9-2.7); Potassium 3.5 mmol/L (3.5-5.0); Total Bilirubin 0.4 mg/dL (0.2-1.0); Total Protein 6.2 g/dL (6.4-8.9); eGFR CKD-EPI 55.7 (>60)
[2022-01-15 06:48] LABS: Activated Partial Thrombo Time 22.4 seconds (26.0-38.0); INR 0.98 (0.89-1.11)
[2022-01-15] MEDS ORDERED: Magnesium Sulfate IV 3 GM in NS 0.9% 100 ml BAG 100 ML IVPB ONE (07:16)
[2022-01-15] MEDS: Nicotine PATCH 21 MG/24 HR PATCH TRANSDERM SCH (08:48)
[2022-01-15] MEDS: Venlafaxine XR 75 mg PO SCH (08:48)
[2022-01-15] MEDS: SPIRIVA Respimat (tiotropium) 2.5 mcg/inh Inhaler INH SCH (10:47)
[2022-01-15 11:00] VITALS: BP 130/78
== END 2022-01-15 11:30 | disposition home or self-care (01) | DRG 224 ==
LOC: ED 21:03 → EDHOLD 23:21 → SUATTDRO 23:21 → MEDTELE 23:57 → SSU 01-09 22:43
PROVIDERS: ADMIT Student in an Organized Health Care Education/Training Program; ATTEND Internal Medicine